=== PATIENT | male | born 1950 | race Caucasian/White ===

== ENCOUNTER 2016-04-07 12:53 | Outpatient (CLI) | payer MEDICARE, MEDICAID ==
[~2016-04-07] VITALS: Ht 167.6 cm; Wt 80.0 kg
--- NOTE | ~2016-04-07 | HEMODYNAMI ---
PATIENT:THOMAS CORREA MEDICAL RECORD: [id number] : 46 [id number] ADMISSION DATE: 04/07/16 Generatedon:04/08/20169:59 Patient name: THOMAS CORREA Patient #: [id number] SSN: D OB: 1950 Date of study: 04/08/2016 Page: Of Hemodynamic Procedure Report Patient Data Patient Demographics Procedure consent was obtained First Name: THOMAS Gender: Male Last Name: SUNNY : 1950 [facility] Initial: B Age: 65 year(s) Patient #: [id number] Race: Additional ID: [id number] Contact details Address: [address] [place] [address] State: [place] City: [facility] Zip code: [address] Past Medical History Allergies Allergen Reaction Date Comments Reported Other allergy 06/[facility] Admission Admission Data Admission Date: 04/07/2016 Admission Time: 13:52 Admit Source: Other Insurance Payor: Medicare, Room #: D.2114 Medicaid Height (in.): 66 BSA: 1.9 (m2) Height (cm.): 167.64 BMI: 28.47 (kg/m2) Weight (lbs.): 176.37 Weight (kg.): 80 Lab Results Lab Result Date: 04/08/2016 Lab Result Time: 0:00 Biochemistry Name Units Result Min Max BUN mg/dl 16 --(---*)-- 7 18 Creatinine mg/dl 1 --(--*-)-- 0.6 1.3 CBC Name Units Result Min Max Hematocrit % 38.6 *-(----)-- 42 54 Hemoglobin g/dl 13.2 -*(----)-- 13.5 17.5 Procedure Procedure Types Cath Procedure Diagnostic Procedure [facility] w/Coronaries PCI Procedure Coronary Stent Initial Miscellaneous Procedures Moderate Sedation up to 30 minutes Procedure Description Procedure Date Procedure Date: 04/08/2016 Procedure Start Time: 9:25 Procedure End Time: 9:58 Procedure Staff Name Function Estuardo Gregg MD Performing Physician Mckenzie Silva RT Scrub German Walker RN Nurse Benjamin Helms RT Sports Teacher Abilio Levy RT Monitor Procedure Data Cath Procedure Fluoroscopy Diagnostic fluoroscopy Total fluoroscopy Time: time: 10.5 min 10.5 min Diagnostic fluoroscopy Total fluoroscopy dose: dose: 890.78 mGy 890.78 mGy Contrast Material Contrast Material Type Amount (ml) Isovue 300 145 Entry Location Entry Primary Successful Side Size Upsize Upsize Entry Closure Succes sful Closure Location (Fr) 1 (Fr) 2 (Fr) Remarks Device Remarks Femoral Right 5 Fr 7 Fr Exoseal artery Short Estimated blood loss: 10 ml Diagnostic catheters Device Type Used For End Catheter Placement Cordis 5Fr Pigtail Procedure Catheter (MP) Cordis 5Fr JL 4.0 Procedure Catheter (MP) Diagnostic Infinity 5Fr Procedure JL 5 catheter Cordis 5Fr 3DRC Catheter Procedure (MP) Procedure Complications No complications Procedure Medications Medication Administration Route Dosage Oxygen NC 2 l/min Heparin Flush Bag added to field 2 bags (1000units/500ml NS) 0.9% NaCl I.V. 100 ml/hr Fentanyl I.V. 100 mcg Versed I.V. 2 mg Fentanyl I.V. 50 mcg Fentanyl I.V. 50 mcg Heparin Bolus I.V. 5000 units Versed I.V. 1 mg Hemodynamics Rest BSA: 1.9 (m2) HGB: 13.2 (g/dl) O2 Consumption: Estimated: 242.8 (ml/min) O2 Cons umption indexed: Estimated:127.79 (ml/min/m) Heart Rate: 101 (bpm) Snapshots Pre Cath Intra NCS Post Cath Vital Signs Time Heart Resp SPO2 NIBP (mmHg) Rhythm Pain Sedation Rate (ipm) (%) Status Level (bpm) 8:59:18 100 19 100 179/109(152) NSR 0 (11) 10(A) , No pain 9:03:49 90 17 97 163/77(128) NSR 0 (11) 10(A) , No pain 9:08:07 85 18 96 133/77(117) NSR 0 (11) 10(A) , No pain 9:12:25 80 17 94 133/81(104) NSR 0 (11) 10(A) , No pain 9:16:43 84 20 99 131/81(114) NSR 0 (11) 10(A) , No pain 9:21:01 82 19 95 120/80(93) NSR 0 (11) 10(A) , No pain 9:25:19 89 20 89 119/69(93) NSR 0 (11) 10(A) , No pain 9:29:35 91 17 96 122/74(88) NSR 0 (11) 9(A) , No pain 9:33:53 83 19 88 121/69(93) NSR 0 (11) 9(A) , No pain 9:38:09 96 18 97 110/77(89) NSR 0 (11) 9(A) , No pain 9:42:21 99 20 100 130/69(86) NSR 0 (11) 9(A) , No pain 9:46:41 89 18 98 123/72(100) NSR 0 (11) 9(A) , No pain 9:50:53 86 17 100 126/73(100) NSR 0 (11) 9(A) , No pain 9:54:14 92 17 98 115/69(91) NSR 0 (11) 9(A) , No pain Medications Time Medication Route Dose Verified Delivered Reason Notes Effectiveness by by 8:53:04 Oxygen NC 2 German German Per physician l/min Aaron Walker RN RN 8:53:13 Heparin Flush added 2 German German used for Bag to bags Aaron Walker RN procedure (1000units/500ml field RN NS) 9:00:35 0.9% NaCl I.V. 100 German German Per physician ml/hr Aaron Walker RN RN 9:26:15 Fentanyl I.V. 100 German German for sedation mcg Aaron Walker RN RN 9:26:25 Versed I.V. 2 mg German German for sedation Aaron Walker RN RN 9:28:16 Fentanyl I.V. 50 German German for sedation mcg Aaron Walker RN RN 9:32:34 Fentanyl I.V. 50 German German for sedation mcg Aaron Walker RN RN 9:32:44 Heparin Bolus I.V. 5000 German German for units Walker Walker RN anticoagulation RN 9:42:58 Versed I.V. 1 mg German Porter for sedation Aaron Walker RN assistant sales center manager Log Time Note 8:20:04 Benjamin Helms RT(R) sent for patient. Start room use. 8:45:52 Informed consent obtained and on chart 8:47:31 Admit Source: Other 8:47:37 Insurance Payor : Medicare, Medicaid 8:49:40 Lab Result : Hematocrit 38.6 % 8:49:40 Lab Result : Creatinine 1 mg/dl 8:49:40 Lab Result : BUN 16 mg/dl 8:49:40 Lab Result : Hemoglobin 13.2 g/dl 8:50:10 Time tracking: Regular hours 8:50:13 Plan of Care:Hemodynamics will remain stable., Cardiac rhythm will remain stable., Comfort level will be maintained., Respiratory function will remain adequate., Patient/ family verbilizes understanding of procedure., Procedure tolerated without complication., Recovers from procedure without complications.. 8:50:20 Patient received from Med II to CCL 2 Alert and oriented. Tansferred to table in Supine position. 8:50:21 Warm blankets applied, and meghana hugger turned on for patient comfort. 8:50:21 Correct patient and procedure confirmed by team. 8:50:22 ECG and BP/O2 sat monitors applied to patient. 8:50:29 H&P Date Dictated: 04/07/2016 Within 30 days and on chart.. 8:50:30 Pre-procedure instructions explained to patient. 8:50:30 Pre-op teaching completed and patient verbalized understanding. 8:50:32 Family in patients room. 8:50:33 Patient NPO since Midnight. 8:50:35 Is the patient allergic to Iodine/contrast media? No. 8:50:36 Is patient on blood thinner?Yes 8:50:39 ACC The patient was administered the following blood thiners within the last 24 hours: ACCPlavix 8:50:40 Patient diabetic? No. 8:50:44 Previous problem with sedation/anesthesia? No ? 8:50:45 Snore? Yes 8:50:45 Sleep apnea? No 8:50:46 Deviated septum? No 8:50:47 Opens mouth fully? Yes 8:50:48 Sticks out tongue? Yes 8:50:49 Airway obstruction? No ? 8:50:53 Dentures? No ? 8:51:06 Pre procedure: right dorsailis pedis pulse 2+ Normal; easily identifiable; not easily obliterated 8:53:04 Oxygen 2 l/min NC was given by German Walker RN; Per physician; 8:53:13 Heparin Flush Bag (1000units/500ml NS) 2 bags added to field was given by German Walker RN; used for procedure; 8:57:56 Vital chart was started 8:57:57 Baseline sample Acquired. 8:58:02 Rhythm: paced 8:58:35 Full Disclosure recording started 8:58:50 Patient pain scale 0/10 ?. 8:59:07 IV patent on arrival in right hand with 0.9% NaCl at [facility]. 8:59:10 Lab results completed and on chart. 8:59:30 Right groin area was prepped with chlora-prep and draped in sterile fashion 8:59:31 Alarms reviewed by R. N. 8:59:31 Sharps counted by scrub and verified by R.N. 8:59:42 Use device set Femoral Dx 8:59:44 Tegaderm 4 x 4 opened to sterile field. 8:59:44 Acist Manifold opened to sterile field. 8:59:45 Acist Hand Control opened to sterile field. 8:59:46 Acist Syringe opened to sterile field. 8:59:47 Bag Decanter opened to sterile field. 8:59:47 Medline Cath Pack opened to sterile field. 8:59:47 Terumo 5Fr Toney Sheath opened to sterile field. 8:59:48 St David 260cm J .035 wire opened to sterile field. 8:59:49 Diagnostic Infinity 5Fr Multipack catheter opened to sterile field. 9:00:35 0.9% NaCl 100 ml/hr I.V. was given by German Walker RN; Per physician; 9:02:28 Patient Weight : 80 lbs 9:16:43 Zero performed for pressure channel P1 9:20:15 Baseline sample Acquired. 9:20:22 Baseline sample Acquired. 9:21:27 --------ALL STOP TIME OUT------ 9:21:27 Final Timeout: patient, procedure, and site verified with staff and physician. All members of the team are in agreement. 9:21:29 Right groin site verified by team. 9:21:32 Physical assessment completed. ASA score P 2 - A patient with mild systemic disease as per Estuardo Gregg MD. 9:21:35 Sedation plan: IV Moderate Sedation Versed, Fentanyl 9:22:24 Patient Height : 167.64 inches 9:25:50 Procedure started. 9:25:53 Local anesthetic to right femoral artery with Lidocaine 2% by Estuardo Gregg MD.INITIAL ACCESS ONLY 9:26:00 A 5 Fr sheath was inserted into the Right Femoral artery 9:26:15 Fentanyl 100 mcg I.V. was given by German Walker RN; for sedation; 9::25 Versed 2 mg I.V. was given by German Walker RN; for sedation; 9:27:52 A Cordis 5Fr Pigtail Catheter (MP) was advanced over the wire and used for Procedure. 9:28:05 LV gram done using MAHER 9:28:08 Injector settings: Ml/sec: 10, Volume: 20, 9:28:13 EF : 50 % 9:28:15 Catheter removed. 9:28:16 Fentanyl 50 mcg I.V. was given by German Walker RN; for sedation; 9:28:20 A Cordis 5Fr JL 4.0 Catheter (MP) was advanced over the wire and used for Procedure. 9:29:01 Catheter removed. unable to cannulate vessel. 9:29:38 A Diagnostic Infinity 5Fr JL 5 catheter was advanced over the wire and used for Procedure. 9:30:44 LCA angiography performed. 9:30:46 Catheter removed. 9:30:50 A Cordis 5Fr 3DRC Catheter (MP) was advanced over the wire and used for Procedure. 9:31:11 Merit BasixCompak Inflation Kit opened to sterile field. 9:31:46 RCA angiography performed. 9:31:49 Catheter removed. 9:32:34 Fentanyl 50 mcg I.V. was given by German Walker RN; for sedation; 9:32:41 Terumo 7Fr Toney Sheath opened to sterile field. 9:32:44 Heparin Bolus 5000 units I.V. was given by German Walker RN; for anticoagulation; 9:33:04 Medtronic Launcher 7Fr EBU 4.0 guide catheter opened to sterile field. 9:33:28 Sheath upsized to a 7 Fr Short. 9:33:36 7 Fr ebu 4 guide catheter was inserted over the wire 9:34:11 Cellartis Fielder XT J 300cm 0.014 guide wire opened to sterile field. 9:34:18 fielder wire advanced. 9:36:42 Wire advanced across lesion. 9:37:58 Inflation number: 1 A Euphora 1.5 x 15 Balloon was prepped and advanced across the Prox CX, then inflated to 21 NANCY for 0:10 (min:sec). 9:38:28 Inflation number: 2 The Euphora 1.5 x 15 Balloon was reinflated across the Prox CX, to 21 NANCY for 0:10 (min:sec). 9:38:44 ACC PCI Site: pCirc has 99% stenosis. 9:38:46 ACC Pre-intervention RACHEL Flow is 3. 9:39:17 Balloon removed over the wire. 9:40:31 Inflation number: 3 A Arrayent San German 2.5 X 15 balloon was prepped and advanced across the Prox CX, then inflated to 21 NANCY for 0:10 (min:sec). 9:41:14 Balloon removed over the wire. 9:42:58 Versed 1 mg I.V. was given by German Walker RN; for sedation; 9:43:12 Inflation Number: 4 A Medtronic Resolute 3.0 X 9 stent was prepped and advanced across the Prox CX. The stent was deployed at 21 NANCY for 0:10 (min:sec). 9:44:16 Stent catheter was removed intact over wire. 9:45:45 Inflation number: 5 A NC Euphora 3.5 x 8 balloon was prepped and advanced across the Prox CX, then inflated to 21 NANCY for 0:10 (min:sec). 9:46:33 Inflation number: 6 The NC Euphora 3.5 x 8 balloon was reinflated across the Prox CX, to 23 NANCY for 0:10 (min:sec). 9:47:09 Inflation number: 7 The NC Euphora 3.5 x 8 balloon was reinflated across the Prox CX, to 23 NANCY for 0:10 (min:sec). 9:47:45 Balloon removed over the wire. 9:47:48 ACC Post-intervention RACHEL Flow is 3. 9:48:06 Wire removed. 9:48:06 Guide catheter removed. 9:48:17 Cordis 7Fr Exoseal opened to sterile field. 9:48:27 Sheath removed intact; hemostasis achieved with Exoseal to the Right Femoral artery. 9:51:28 Procedure ended.(Physican Out) 9:51:40 Fluoroscopy time 10.50 minutes. 9:51:50 Flurop Dose total: 890.78 9:51:50 Fluoroscopy dose: 890.78 mGy 9:51:54 Contrast amount:Isovue 300 145ml. 9:51:57 Insertion/operative site no bleeding no hematoma. 9:51:59 Post-op/insertion site Right Femoral artery dressed using a 4 x 4 and Tegaderm. 9:52:04 Post right femoral artery:stable, soft, clean and dry 9:53:10 Post Procedure Pulses reassessed and unchanged 9:53:16 Post procedure: right dorsailis pedis pulse 1+ Palpable, but thready & weak; easily obliterated. 9:53:20 Post procedure rhythm: sinus rhythm 9:53:21 Post procedure instruction explained to patient.Patient verbalizes understanding. 9:54:15 Procedure type changed to Cath procedure, Diagnostic procedure, LHC, LHC w/Coronaries, PCI procedure, Coronary Stent Initial, Miscellaneous Procedures, Moderate Sedation up to 30 minutes 9:57:49 Patient needs reinforcement of post procedure teaching. 9:57:52 Estimated blood loss: 10 ml 9:58:04 Procedure and supply charges have been captured, reviewed, submitted and are correct. 9:58:10 Procedure Complication : No complications 9:58:13 Vital chart was stopped 9:58:13 See physician's report for complete and final results. 9:58:16 Report given to PCU. 9:58:18 Patient transfered to PCU with Stretcher. 9:58:20 Procedure ended. 9:58:20 Full Disclosure recording stopped 9:58:30 ACC-PCI Only Patient was given prescriptions, or instructed by Estuardo Gregg MD to start/continue the following medications upon discharge: Aspirin, Plavix 9:58:34 End room use (Document Last) Intervention Summary Intervention Notes Time ActionType Lesion and Equipment Action# Pressure Duration Attributes Used 9:37:58 Inflate Prox CX Euphora 1 21 00:10 balloon 1.5 x 15 Balloon 9:38:28 Reinflate Prox CX Euphora 2 21 00:10 balloon 1.5 x 15 Balloon 9:40:31 Inflate Prox CX [place] 3 21 00:10 balloon Sci San German 2.5 X 15 balloon 9:43:12 Place stent Prox CX Medtronic 4 21 00:10 Resolute 3.0 X 9 stent 9:45:45 Inflate Prox CX NC 5 21 00:10 balloon Euphora 3.5 x 8 balloon 9:46:33 Reinflate Prox CX NC 6 23 00:10 balloon Euphora 3.5 x 8 balloon 9:47:09 Reinflate Prox CX NC 7 23 00:10 balloon Euphora 3.5 x 8 balloon Device Usage Item Name Manufacture Quantity Catalog Number Hospital Part Current Mini [facility] Lot# / Charge Number Stock Stock Serial# Code Tegaderm 4 3M 1 [id number] 458954 107265 5 x 4 Acist Acist 1 00814 557505 288717 525325 5 Manifold Medical Systems Inc Acist Hand Acist 1 53337 396010 869270 703967 5 Control Medical Systems Inc Acist Acist 1 08850 833260 655523 110782 20 Syringe Medical Systems Inc Bag Microtek 1 2002S 720565 39921 069967 5 DecTweetMeme Medical Inc. Medline Cardinal 1 [id number] 556095 72144 942707 5 Cath Pack Health Terumo 5Fr Terumo 1 [id number] 159563 563144 888836 [address] [facility] 1 718230 195896 578714 327929 30 260cm J .035 wire Diagnostic Cardinal 1 [id number] 179420 99359 114445 30 Infinity Health 5Fr Multipack catheter Cordis 5Fr Cardinal 1 215723 5 Pigtail Health Catheter (MP) Cordis 5Fr Cardinal 1 616988 5 JL 4.0 Health Catheter (MP) Diagnostic Cardinal 1 [id number] 888876 114047 868605 5 Infinity Health 5Fr JL 5 catheter Cordis 5Fr Cardinal 1 243568 5 [facility] Health Catheter (MP) Merit Merit 1 AE7697 790692 043509 117956 15 Anyone Home Medical Inflation Kit Terumo 7Fr Terumo 1 [id number] 835595 323032 148362 5 Toney Sheath Medtronic Medtronic 1 [id number] 111493 780481 577584 0 Launcher 7Fr EBU 4.0 guide catheter Pyle Pyle 1 [id number] 565749 836452 159062 5 Fielder XT Vascular J 300cm 0.014 guide wire Euphora 1.5 Medtronic 1 [id number] 972909 194864 443918 5 [id number] x 15 Balloon [place] Sci [place] 1 [id number] 004897 691534 772947 1 [id number] velingo 2.5 X 15 balloon Medtronic Medtronic 1 [id number] 738218 099546 4 [id number] Resolute 3.0 X 9 stent NC Euphora Medtronic 1 [id number] 788386 529414 163343 1 [id number] 3.5 x 8 balloon Cordis 7Fr Cardinal 1 EX700 418847 830901 323284 5 [facility] Health Signature Audit Mora Stage Time Signature Unsigned Intra-Procedure 04/08/2016 Benjamin Helms 9:59:06 AM RT(R) Signatures Monitor : Abilio Levy RT Signature : Date : Time : [facility] [address] [place] [address]
[2016-04-07 11:37] LABS: ALBUMIN 4.5 g/dL (3.4-5.0); ALKALINE PHOSPHATASE 75 U/L (46-116); ALT (SGPT) 22 U/L (10-68); BILIRUBIN - TOTAL 0.48 mg/dL (0.2-1.3); CALC OSMOLALITY 279 mosm/kg (275-300); CALCIUM 9.4 mg/dL (8.5-10.1); CARBON DIOXIDE 29.2 mmol/L (21.0-32.0); CHLORIDE - SERUM 103 mmol/L (98-107); GLUCOSE 99 mg/dL (74-106); POTASSIUM - SERUM 4.5 mmol/L (3.5-5.1); SODIUM 140 mmol/L (136-145); UREA NITROGEN 16 mg/dL (7-18); eGFR NON AFRICAN AMERICAN 79 mL/min (90-120)
[2016-04-07 11:42] LABS: BASOPHILS 0.8 % (0.0-2.0); EOSINOPHILS 4.9 % (0-7); HEMATOCRIT 38.6 % (42.0-54.0); HEMOGLOBIN 13.2 g/dL (13.5-17.5); LYMPHOCYTES 30.2 % (15-50); MCH 31.1 pg (26.0-34.0); MCHC 34.2 g/dL (31.0-37.0); MEAN PLATELET VOLUME 10.9 fL (7.4-10.4); MONOCYTES 8.3 % (2-11); NEUTROPHILS 55.8 % (40-80); PLATELET COUNT 198 10x3/uL (130-400); RBC 4.24 10x6/uL (4.20-6.10); RDW 14.3 % (11.5-14.5); WBC 3.8 10x3/uL (4.8-10.8)
[2016-04-07 11:47] LABS: CKMB 0.5 U/L (0.0-3.6); CREATINE KINASE 63 UL (21-232)
[2016-04-07 11:51] LABS: TROPONIN-I < 0.017 ng/mL (0.000-0.060)
[~2016-04-07 12:53] MED LIST: AMBIEN5 MG PO; ASPIRIN EC81 M1 PO; FISH OIL 1,0001 CA1 PO; FLOMAX0.4 MG PO; HYDROCODONE-APA1 TAB PO; OMEPRAZOLE20 M1 PO; PLAVIX75 MG PO; PRAVACHOL40 MG PO; SYNTHROID25 MCG PO; WELCHOL625 MG PO; ZYLOPRIM300 MG PO
[2016-04-07 14:25] VITALS: BP 122/77; Ht 167.6 cm; Wt 80.0 kg
[2016-04-07] MEDS ORDERED: RANEXA500 MG PO (15:12)
[2016-04-07] MEDS ORDERED: PRAVACHOL40 MG PO (15:13)
[2016-04-07] MEDS ORDERED: ZYLOPRIM300 MG PO (15:14)
[2016-04-07] MEDS ORDERED: NITROSTAT0.4 MG SL (15:18)
[2016-04-07 16:00] VITALS: BP 112/61
[2016-04-07 19:41] VITALS: BP 129/74
[2016-04-08 01:20] VITALS: BP 132/78
[2016-04-08 04:33] VITALS: BP 99/57
[2016-04-08 08:01] VITALS: BP 138/77
--- NOTE | 2016-04-08 10:32 | NUR ---
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 DRSG TO R.GROIN CDI NO S/S OF HEMATOMA OR BLEEDING NOTED. TELEMETRY BACK IN PLACE. VSS. PT LYING FLAT AND VERBALIZED UNDERSTANDING TO REMAIN FLAT FOR 4 HOURS. NS INFUSING VIA R.HAND PIV WITH CONORG CDI AND SWAB CAPS IN USE NS INFUSING @100ML/HR. AT BEDSIDE WILL CTM.
--- NOTE | 2016-04-08 11:08 | NUR ---
VSS. PERIPHERAL PULSES INTACT. R.GROIN DRSG CDI NO S/S OF HEMATOMA OR BLEEDING NOTED. AT BEDSIDE. WILL CTM.
[2016-04-08 11:46] VITALS: BP 107/73
--- NOTE | 2016-04-08 14:26 | NUR ---
4 HOUR LAY COMPLETED. PT SITTING UP AND VOIDED. DISCHARGE PAPERS SIGNED AND TEACHING COMPLETED AND IN CHART. D/C PTS R.HAND PIV WITH CATHETER TIP FULLY INTACT. R.GROIN DRSG CDI NO S/S OF BLEEDING OR HEMATOMA NOTED. PERIPHERAL PULSES INTACT. NO FURTHER NEEDS NOTED.
--- NOTE | 2016-04-15 08:46 | HP ---
PATIENT: THOMAS CORREA MEDICAL RECORD: [id number] ACCOUNT: [id number] LOCATION:[facility] : 46 ADMISSION DATE: 04/07/16 HISTORY AND PHYSICAL EXAMINATION DATE OF ADMISSION: 04/07/2016 DIAGNOSES: 1. Angina. 2. Coronary artery disease. 3. Previous percutaneous transluminal coronary angioplasty stent. 4. Hypertension. 5. Hyperlipidemia. HISTORY OF PRESENT ILLNESS: This is a gentleman with a past history of coronary artery disease, hypertension and hyperlipidemia, who presents to the ER with 2 weeks of ongoing chest pain, chest discomfort compatible with angina. He was seen in our office, risk stratified, his stress test was positive. He was going to be set for cardiac catheterization. PHYSICAL EXAMINATION: GENERAL APPEARANCE: Well-nourished, well-developed, appears stated age. Level of distress, comfortable. PSYCHIATRIC: Mental status, alert, normal affect. Orientation, oriented to time, place and person. EYES: Lids and conjunctiva, noninjected. No discharge, no pallor. ENT: Lips, teeth, gums, normal dentition. Oropharynx, no cyanosis, no pallor. NECK: Carotid arteries, bilateral normal upstroke, no bruits, no thrills. JUGULAR VEINS: No jugular venous pressure or distention. CERVICAL LYMPH NODES: Nontender, nonenlarged. THYROID: Not enlarged. Nontender. No nodules. LUNGS: Respiratory effort, unlabored. CHEST: Normal curvature. No thoracic deformity. No chest wall tenderness. Percussion, resonant. Auscultation, clear. No wheezes, no rales, no rhonchi. CARDIOVASCULAR: Precordial exam, nondisplaced. No heaves or pericardial thrills. Rate and rhythm, regular. Heart sounds, normal S1, normal S2. No S3, no gallop, no rub. Systolic murmur, not heard. Diastolic murmur, not heard. EXTREMITIES: No cyanosis, no edema. Peripheral pulses, full and equal in all extremities, except as noted. No bruits appreciated. ABDOMEN: Soft, nondistended. Normal aorta. No bruit. Nontender. No masses. Liver, nontender, no hepatomegaly. Spleen, nontender, no splenomegaly. MUSCULOSKELETAL: No joint tenderness. No joint swelling. No erythema. NEUROLOGICAL: Normal gait, normal strength, normal tone. SKIN: Warm and dry. REVIEW OF SYSTEMS: The patient reports easy bruising but reports no swollen glands. The patient reports no fever, no night sweats, no significant weight gain, no significant weight loss. No significant exercise tolerance. The patient reports no dry eyes, no irritation, no vision change. Patient reports no difficulty hearing and no ear pain. Patient reports no frequent nose bleeds or nose and sinus problems. Patient reports on arm pain on exertion. No shortness of breath while lying down. No history of heart murmur. Patient reports no cough, no wheezing or coughing up blood. Patient reports no abdominal pain, no vomiting. Normal appetite. No diarrhea and not vomiting blood. No nausea and no constipation. Patient reports no incontinence. No HISTORY AND PHYSICAL [id number] THOMAS CORREA difficulty urinating. No hematuria. No increased frequency. Patient reports no muscle aches. No weakness, no arthralgias, no back pain. No swelling of the extremities. Patient reports no abnormal mole, no jaundice, no rashes. Reports no loss of consciousness. No weakness and no numbness. No seizures, dizziness, or headaches. The patient reports no depression, no sleep disturbance, feeling safe in a relationship and no alcohol abuse. Patient reports on fatigue. Reports no runny nose or sinus pressure. No itching, no hives, and no frequent sneezing. OVERALL IMPRESSION: Anginal symptomatology with a past history of coronary artery disease. We will proceed with coronary angiography in the a.m. Further care depends upon findings of the angiography. TRANSINT:[id number] Voice Confirmation ID: [id number] DOCUMENT ID: [id number] SATNAM RUSSO MD at 0846 CC: [id number] DICTATION DATE: 04/07/16 1311 DISC PAD GRINDING MACHINE FEEDER: 04/07/16 1344 DEP CLI 04/08/16 [address] [place] [address]
--- NOTE | 2016-04-15 08:46 | DS ---
PATIENT:THOMAS CORREA :46 MEDICAL RECORD: [id number] DISCHARGE SUMMARY ADMISSION DATE: 04/07/16 DISCHARGE DATE: 04/08/16 DISCHARGE DIAGNOSES: 1. Unstable angina. 2. Coronary artery disease. 3. PTCA stent in left circumflex this admission. HOSPITAL COURSE: This is a gentleman who presents with unstable anginal symptomatology, found to have 99% stenosis of the left circumflex, underwent successful PTCA stent of the left circumflex. He had an uneventful postop course. He was discharged home to continue aspirin and Plavix. Follow up with [facility] in 1 month. TRANSINT:[id number] Voice Confirmation ID: [id number] DOCUMENT ID: [id number] SATNAM RUSSO MD at 0846 CC: [id number] DICTATION DATE: 04/08/16 0953 MEDIA DIRECTOR: 04/09/16 0034 DEP CLI 04/08/16 [address] [place] [address]
--- NOTE | 2016-04-15 08:46 | OP ---
PATIENT NAME: THOMAS CORREA MEDICAL RECORD: [id number] :46 LOCATION:D.CAT ADMISSION DATE: SURGEON: SATNAM RUSSO MD DATE OF OPERATION: 04/08/2016 PROCEDURES: 1. PTCA stent left circumflex. 2. Left heart catheterization. 3. Selective coronary angiography. 4. Left ventriculogram. PROCEDURE IN DETAIL: After informed consent was obtained and after a detailed explanation of risks, benefits as well as alternative therapies, the patient elected to proceed with angiogram and angioplasty. The right femoral area was prepped and draped in normal sterile fashion. Right femoral artery was cannulated via modified Seldinger technique with placement of a 6-Thai sheath. All catheters exchanged through this sheath. FINDINGS: The left ventriculogram was performed in the standard 30-degree MAHER view, reveals good cardiac wall motion throughout all segments. Overall ejection fraction estimated at 50%. There is no significant gradient across the prosthetic tissue valve. SELECTIVE CORONARY ANGIOGRAPHY: 1. Left main showed no significant angiographic disease. 2. Left anterior descending has moderate irregularities, but no flow-limiting stenosis. 3. The left circumflex has 99% stenosis at the ostium followed by a previously placed stent that is widely patent. 4. Right coronary is small, nondominant with no significant disease throughout. PTCA STENT OF THE LEFT CIRCUMFLEX: ____ stent used was a 3.0 x 9 mm Resolute high pressure post-stent dilatation made with a 3.5 balloon up to 23 atmospheres. Result was 0% residual stenosis. OVERALL IMPRESSION: Successful percutaneous transluminal coronary angioplasty stent of the left circumflex going from 99% initial stenosis to 0% residual. TRANSINT:[id number] Voice Confirmation ID: [id number] DOCUMENT ID: [id number] SATNAM RUSSO MD at 0846 CC: [id number] DICTATION DATE: 04/08/16 0952 CUSTOMER ADVISOR SPECIALIST: 04/08/16 1757 DEP CLI 04/08/[address] [address]
== END 2016-04-08 14:37 | disposition home or self-care (01) ==
LOC: OBSVTIME → D.CATH 12:53 → D.ER 13:52 → D.M2 13:52 → OBSVTIME 13:52 → D.M2 13:52 → EDSTATUS 04-08 13:00 → D.M2 04-08 14:37 → D.CATH 04-08 14:37 → D.M2 04-08 14:37
PROVIDERS: Emergency Medicine
DX: I25.110 Atherosclerotic heart disease of native coronary artery with unstable angina pectoris (principal); Z95.5 Presence of coronary angioplasty implant and graft; I10 Essential (primary) hypertension; E78.5 Hyperlipidemia, unspecified
CPT/HCPCS: 93458; C9600

== ENCOUNTER 2016-05-25 13:06 | Inpatient (IN) | payer MEDICARE, MEDICAID ==
[~2016-05-25] VITALS: Ht 170.2 cm; Wt 81.8 kg
--- NOTE | ~2016-05-25 | HEMODYNAMI ---
PATIENT:THOMAS CORREA MEDICAL RECORD: [id number] : 46 [id number] ADMISSION DATE: 05/25/16 Generatedon:05/26/201611:04 Patient name: THOMAS CORREA Patient #: [id number] SSN: D OB: 1950 Date of study: 05/26/2016 Page: Of Hemodynamic Procedure Report Patient Data Patient Demographics Procedure consent was obtained First Name: THOMAS Gender: Male Last Name: SUNNY : 1950 Middle Initial: B Age: 65 year(s) Patient #: [id number] Race: Additional ID: [id number] Contact details Address: [address] [place] [address] State: [place] City: [facility] Zip code: [address] Past Medical History History of disease Date Diagnosis Comments CAD Peripheral vascular disease Valvular heart disease Allergies Allergen Reaction Date Comments Reported Other allergy 05/26/2016 [facility] Admission Admission Data Admission Date: 05/25/2016 Admission Time: 16:38 Admit Source: Emergency department Room #: D.2116 Weight (lbs.): 180 Weight (kg.): 81.65 Lab Results Lab Result Date: 05/26/2016 Lab Result Time: 0:00 Biochemistry Name Units Result Min Max BUN mg/dl 10 --(-*--)-- 7 18 Creatinine mg/dl 0.8 --(-*--)-- 0.6 1.3 Troponin I ng/ml 1.599 --(----)-* 0 0.06 CBC Name Units Result Min Max Hemoglobin g/dl 12.9 -*(----)-- 13.5 17.5 Procedure Procedure Types Cath Procedure Diagnostic Procedure LHC Coronaries w/Grafts Aortic Root Angiography Miscellaneous Procedures Moderate Sedation up to 45 minutes Procedure Description Procedure Date Procedure Date: 05/26/2016 Procedure Start Time: 10:38 Procedure End Time: 11:01 Procedure Staff Name Function Chuck Roper MD Performing Physician Meaghan Conroy RN Nurse Venkat Ny RT Monitor Benjamin Helms RT Scrub Procedure Data Cath Procedure Fluoroscopy Diagnostic fluoroscopy Total fluoroscopy Time: 2.5 time: 2.5 min min Diagnostic fluoroscopy Total fluoroscopy dose: 558 dose: 558 mGy mGy Contrast Material Contrast Material Type Amount (ml) Isovue 300 94 Entry Location Entry Primary Successful Side Size Upsize Upsize Entry Closure Succes sful Closure Location (Fr) 1 (Fr) 2 (Fr) Remarks Device Remarks Femoral Right 5 Fr Exoseal artery Diagnostic catheters Device Type Used For End Catheter Placement Cordis 5Fr JL 4.0 Left Coronary Catheter (MP) Angiography Cordis 5Fr 3DRC Catheter Right Coronary (MP) Angiography Cordis 5Fr Pigtail LV Angiography Catheter (MP) Diagnostic Infinity 5Fr SVG Angiography AR MOD Catheter Procedure Complications No complications Procedure Medications Medication Administration Route Dosage Oxygen NC 2 l/min Heparin Flush Bag added to field 2 bags (1000units/500ml NS) Lidocaine 2% added to field 20 Versed I.V. 1 mg Fentanyl I.V. 50 mcg Versed I.V. 0.5 mg Fentanyl I.V. 25 mcg Fentanyl I.V. 25 mcg Versed I.V. 0.5 mg Hemodynamics Rest HGB: 12.9 (g/dl) Heart Rate: 73 (bpm) Snapshots Pre Cath Intra NCS Post Cath Vital Signs Time Heart Resp SPO2 NIBP (mmHg) Rhythm Pain Sedation Rate (ipm) (%) Status Level (bpm) 10:03:52 71 15 97 122/76(105) Paced 0 (11) 10(A) , No pain 10:08:02 71 17 97 115/76(95) Paced 0 (11) 10(A) , No pain 10:12:10 69 15 97 101/61(75) Paced 0 (11) 10(A) , No pain 10:16:20 69 15 96 103/59(76) Paced 0 (11) 9(A) , No pain 10:20:26 69 14 96 95/62(74) Paced 0 (11) 9(A) , No pain 10:24:33 69 16 95 89/56(74) Paced 0 (11) 9(A) , No pain 10:28:39 69 16 96 90/53(75) Paced 0 (11) 9(A) , No pain 10:32:43 69 15 96 93/59(75) Paced 0 (11) 9(A) , No pain 10:36:49 69 16 96 87/60(75) Paced 0 (11) 9(A) , No pain 10:40:49 69 21 98 99/68(87) Paced 0 (11) 9(A) , No pain 10:44:56 69 15 94 93/60(76) Paced 0 (11) 9(A) , No pain 10:49:04 69 16 96 87/52(67) Paced 0 (11) 9(A) , No pain 10:53:10 69 23 95 88/53(66) Paced 0 (11) 9(A) , No pain 10:57:18 69 15 95 91/55(72) Paced 0 (11) 10(A) , No pain 10:59:14 69 15 97 97/55(79) Paced 0 (11) 10(A) , No pain Medications Time Medication Route Dose Verified Delivered Reason Notes Effec tiveness by by 10:03:01 Oxygen NC 2 Chuck Meaghan Per l/min Judson Conroy RN physician 10:03:08 Heparin Flush added 2 Chuck Chuck used for Bag to bags Judson Roper MD procedure (1000units/500ml field NS) 10:03:18 Lidocaine 2% added 20ml Chuck Chuck used for to vial Judson Roper MD procedure field 10:15:07 Versed I.V. 1 mg Chuck Meaghan for Judson Conroy RN sedation 10:15:15 Fentanyl I.V. 50 Chuck Meaghan for mcg Judson Conroy RN sedation 10:18:27 Fentanyl I.V. 25 Chuck Meaghan for mcg Judson Conroy RN sedation 10:18:40 Versed I.V. 0.5 Chuck Meaghan for mg Judson Conroy RN sedation 10:30:35 Fentanyl I.V. 25 Chuck Meaghan for mcg Judson Conroy RN sedation 10:30:42 Versed I.V. 0.5 Chuck Meaghan for mg Judson Conroy RN sedation Procedure Log Time Note 9:30:51 Benjamin Helms RT(R) sent for patient. Start room use. 9:30:52 Time tracking: Regular hours 9:30:55 Plan of Care:Hemodynamics will remain stable., Cardiac rhythm will remain stable., Comfort level will be maintained., Respiratory function will remain adequate., Patient/ family verbilizes understanding of procedure., Procedure tolerated without complication., Recovers from procedure without complications.. :46:44 Lab Result : Creatinine 0.8 mg/dl :44 Lab Result : BUN 10 mg/dl :44 Lab Result : Troponin T 1.599 ng/ml :44 Lab Result : Hemoglobin 12.9 g/dl 9:46:47 Lab results completed and on chart. 9:48:51 Patient allergic to Other allergylevaquin 9:52:20 Admit Source: Emergency department 9:52:26 ACC Patient presents with Unstable Angina CCS Anginal Class 3--Marked limitation of physical activity, angina occurs with ordinary activity.. 9:52:30 Diagnostic Cath status Urgent 9:52:36 Patient received from PCU to CCL 2 Alert and oriented. Tansferred to table in Supine position. 9:52:37 Warm blankets applied, and meghana hugger turned on for patient comfort. 9:52:37 Correct patient and procedure confirmed by team. 9:52:39 Signed procedure consent form obtained from patient. 9:52:39 ECG and BP/O2 sat monitors applied to patient. 10:02:50 Vital chart was started 10:03:01 Oxygen 2 l/min NC was administered by Meaghan Conroy RN; Per physician; 10:03:08 Heparin Flush Bag (1000units/500ml NS) 2 bags added to field was administered by Chuck Roper MD; used for procedure; 10:03:18 Lidocaine 2% 20ml vial added to field was administered by Chuck Roper MD; used for procedure; 10:05:09 Baseline sample Acquired. 10:05:19 Rhythm: sinus rhythm 10:05:22 Full Disclosure recording started 10:05:51 H&P Date Dictated: 05/25/2016 Within 30 days and on chart., H&P Addendum completed by physician on day of procedure. (MUST COMPLETE FOR ALL OUTPATIENTS). 10:05:53 Pre-procedure instructions explained to patient. 10:05:53 Pre-op teaching completed and patient verbalized understanding. 10:05:56 Family in patients room. 10:05:58 Patient NPO since Midnight. 10:06:00 Is the patient allergic to Iodine/contrast media? No. 10:08:40 Is patient on blood thinner?Yes 10:08:43 ACC The patient was administered the following blood thiners within the last 24 hours: ACCPlavix 10:08:49 Patient diabetic? No. 10:09:34 ----Pre-sedation anethsthesia assessment.---- 10:09:38 Previous problem with sedation/anesthesia? No ? 10:09:42 Snore? Yes 10:12:35 Sleep apnea? No 10:12:37 Deviated septum? No 10:12:38 Opens mouth fully? Yes 10:12:42 Sticks out tongue? Yes 10:12:44 Airway obstruction? No ? 10:12:55 Dentures? Yes out 10:13:00 Pre procedure: right dorsailis pedis pulse 1+ Palpable, but thready & weak; easily obliterated 10:13:05 Patient pain scale 0/10 ?. 10:13:10 IV patent on arrival in right hand with 0.9% NaCl at 10ml/hr. 10:13:19 Right groin area was prepped with chlora-prep and draped in sterile fashion 10:13:20 Alarms reviewed by R. N. 10:13:20 Sharps counted by scrub and verified by R.N. 10:13:22 --------ALL STOP TIME OUT------ 10:13:22 Final Timeout: patient, procedure, and site verified with staff and physician. All members of the team are in agreement. 10:13:24 Right groin site verified by team. 10:13:26 Physical assessment completed. ASA score P 2 - A patient with mild systemic disease as per Chuck Roper MD. 10:13:30 Sedation plan: IV Moderate Sedation Versed, Fentanyl 10:15:07 Versed 1 mg I.V. was administered by Meaghan Conroy RN; for sedation; 10:15:15 Fentanyl 50 mcg I.V. was administered by Meaghan Conroy RN; for sedation; 10:15:31 Use device set Femoral Dx 10:15:32 Bag Decanter opened to sterile field. 10:15:33 Medline Cath Pack opened to sterile field. 10:15:33 Terumo 5Fr Underwood Sheath opened to sterile field. 10:15:33 [facility] David 260cm J .035 wire opened to sterile field. 10:15:34 Acist Syringe opened to sterile field. 10:15:35 Acist Hand Control opened to sterile field. 10:15:36 Acist Manifold opened to sterile field. 10:15:36 Diagnostic Infinity 5Fr Multipack catheter opened to sterile field. 10:15:37 Tegaderm 4 x 4 opened to sterile field. 10:18:27 Fentanyl 25 mcg I.V. was administered by Meaghan Conroy RN; for sedation; 10:18:40 Versed 0.5 mg I.V. was administered by Meaghan Conroy RN; for sedation; 10:20:36 Patient Weight : 81.65 kg 10:22:16 Zero performed for pressure channel P1 10:30:35 Fentanyl 25 mcg I.V. was administered by Meaghan Conroy RN; for sedation; 10:30:42 Versed 0.5 mg I.V. was administered by Meaghan Conroy RN; for sedation; 10:38:36 Procedure started. 10:38:47 Local anesthetic to right femoral artery with Lidocaine 2% by Chuck Roper MD.INITIAL ACCESS ONLY 10:38:55 A 5 Fr sheath was inserted into the Right Femoral artery 10:39:36 A Cordis 5Fr JL 4.0 Catheter (MP) was advanced over the wire and used for Left Coronary Angiography. 10:41:19 LCA angiography performed. 10:47:04 Catheter removed. 10:47:09 A Cordis 5Fr 3DRC Catheter (MP) was advanced over the wire and used for Right Coronary Angiography. 10:47:11 RCA angiography performed. 10:48:33 Catheter removed. 10:48:38 A Cordis 5Fr Pigtail Catheter (MP) was advanced over the wire and used for LV Angiography. 10:49:25 Aortic Root visualized 10:49:35 Injector settings: Ml/sec: 15, Volume: 30, 10:50:02 Procedure type changed to Cath procedure, Diagnostic procedure, LHC, Coronaries w/Grafts, Aortic Root Angiography, Miscellaneous Procedures, Moderate Sedation up to 45 minutes 10:51:08 Catheter removed. 10:53:05 A Diagnostic Infinity 5Fr AR MOD Catheter was advanced over the wire and used for SVG Angiography. 10:53:52 SVG to Circ angiography performed. 10:57:41 Cordis 5Fr Exoseal opened to sterile field. 10:57:44 Catheter removed. 10:58:25 Sheath removed intact; hemostasis achieved with Exoseal to the Right Femoral artery. 10:58:27 Procedure ended.(Physican Out) 10:59:20 Fluoroscopy time 02.50 minutes. 10:59:33 Fluoroscopy dose: 558 mGy 10:59:33 Flurop Dose total: 558 10:59:50 Contrast amount:Isovue 300 94ml. 10:59:51 Sharps counted by scrub and verified by R.N. 10:59:52 Insertion/operative site no bleeding no hematoma. 10:59:55 Post-op/insertion site Right Femoral artery dressed using a 4 x 4 and Tegaderm. 10:59:58 Post right femoral artery:stable 10:59:59 Post Procedure Pulses reassessed and unchanged 11:00:01 Post procedure: right dorsailis pedis pulse 1+ Palpable, but thready & weak; easily obliterated. 11:00:04 Post procedure rhythm: sinus rhythm 11:00:05 Post procedure instruction explained to patient.Patient verbalizes understanding. 11:00:22 Procedure and supply charges have been captured, reviewed, submitted and are correct. 11:01:05 Procedure Complication : No complications 11:01:07 Vital chart was stopped 11:01:07 See physician's report for complete and final results. 11:01:10 Report given to PCU. 11:01:13 Patient transfered to PCU with Bed. 11:01:14 Procedure ended. 11:01:14 Full Disclosure recording stopped 11:01:20 End room use (Document Last) Device Usage Item Name Manufacture Quantity Catalog Hospital Part Current Minimal Lo t# / Number Charge Number Stock Stock Serial# Code [place] [id number] 2001 [id number] [id number] [id number] 5 Renaissance [employer] Medline Cardinal 1 [id number] 552269 37937 503648 5 Binpress Terumo 5Fr Terumo 1 [id number] 985164 763404 385534 [address] [facility] 1 454241 398582 401071 610607 30 260cm J .035 wire Acist Acist 1 76497 099378 217546 106991 20 Syringe Medical Systems Inc Acist Hand Acist 1 36385 914392 138393 366841 5 Control Medical Systems Inc Acist Acist 1 64269 917359 508983 538174 5 Manifold Medical Systems Inc Diagnostic Cardinal 1 [id number] 755821 15261 686449 30 MolecularMDity Health 5Fr Multipack catheter Tegaderm 4 3M 1 1626W 292266 446689 158900 5 x 4 Cordis 5Fr Cardinal 1 301246 5 JL 4.0 Health Catheter (MP) Cordis 5Fr Cardinal 1 857542 5 3DRC Health Catheter (MP) Cordis 5Fr Cardinal 1 054847 5 Pigtail Health Catheter (MP) Diagnostic Cardinal 1 [id number] 522142 686947 717808 15 Infinity Health 5Fr AR MOD Catheter Cordis 5Fr Cardinal 1 EX500 302901 150548 079887 10 Vite Signature Audit [place] Stage Time Signature Unsigned Intra-Procedure 05/26/2016 Venkat Ny 11:04:25 AM RT(R) Signatures Monitor : Venkat Ny RT Signature : Date : Time : [facility] [address] [facility] [place] [address]
[~2016-05-25 13:06] MED LIST changes: +NITROSTAT0.4 MG SL; +RANEXA500 MG PO
[2016-05-25 14:34] LABS: BASOPHILS 0.3 % (0.0-2.0); EOSINOPHILS 1.3 % (0-7); HEMATOCRIT 38.5 % (42.0-54.0); HEMOGLOBIN 12.9 g/dL (13.5-17.5); IMMATURE GRANULOCYTES 0.2 % (0-5); LYMPHOCYTES 14.7 % (15-50); MCH 30.6 pg (26.0-34.0); MCHC 33.5 g/dL (31.0-37.0); MCV 91.4 fL (80.0-100.0); MEAN PLATELET VOLUME 10.7 fL (7.4-10.4); MONOCYTES 7.4 % (2-11); NEUTROPHILS 76.1 % (40-80); PLATELET COUNT 168 10x3/uL (130-400); RBC 4.21 10x6/uL (4.20-6.10); RDW 14.4 % (11.5-14.5); WBC 6.3 10x3/uL (4.8-10.8)
[2016-05-25 15:39] LABS: ALBUMIN 4.4 g/dL (3.4-5.0); ALKALINE PHOSPHATASE 74 U/L (46-116); ALT (SGPT) 30 U/L (10-68); BILIRUBIN - TOTAL 0.56 mg/dL (0.2-1.3); CALCIUM 9.1 mg/dL (8.5-10.1); CHLORIDE - SERUM 104 mmol/L (98-107); CHOL - HDL RATIO 5.6 ratio (2.3-4.9); CHOLESTEROL, TOTAL 214 mg/dL (0-200); CKMB 5.2 U/L (0.0-3.6); CREATINE KINASE 124 UL (21-232); CREATININE - SERUM 0.8 mg/dL (0.6-1.3); GLUCOSE 119 mg/dL (74-106); HDL CHOLESTEROL 38 mg/dL (32-96); LDL CHOLESTEROL 118 mg/dL (0-100); LDL-HDL RATIO 3.1 ratio (1.5-3.5); POTASSIUM - SERUM 4.1 mmol/L (3.5-5.1); PROTEIN - SERUM 7.6 g/dL (6.4-8.2); SODIUM 139 mmol/L (136-145); TRIGLYCERIDE 290 mg/dL (30-200); eGFR NON AFRICAN AMERICAN > 90 mL/min (90-120)
[2016-05-25 15:40] LABS: TROPONIN-I 1.599 ng/mL (0.000-0.060)
[2016-05-25 15:48] LABS: CARBON DIOXIDE 18.9 mmol/L (21.0-32.0); UREA NITROGEN 10 mg/dL (7-18)
[2016-05-25 15:49] LABS: CALC OSMOLALITY 275 mosm/kg (275-300)
--- NOTE | 2016-05-25 17:08 | NUR ---
TRANSFER FROM ER BY W/C. ROSA MARIAINTED TO ROOM. CALL LIGHT IN REACH. WILL CONT. PLAN OF CARE.
[2016-05-25 17:22] VITALS: BP 100/62; Ht 170.2 cm; Wt 81.8 kg
[2016-05-25] MEDS ORDERED: WELCHOL625 MG PO (17:46)
[2016-05-25 19:25] LABS: CKMB 9.9 U/L (0.0-3.6); CREATINE KINASE 131 UL (21-232)
[2016-05-25 19:33] LABS: TROPONIN-I 4.291 ng/mL (0.000-0.060)
--- NOTE | 2016-05-25 19:57 | NUR ---
RESUMED CARE OF PT, LYING IN BED RESPIRATIONS EVEN AND UNLABORED ON ROOM AIR. 71 PACED ON TELEMETRY. RIGHT HAND SALINE LOCKED. PLAN OF CARE DISCUSSED, WILL BE NPO AT MIDNIGHT FOR [facility] IN AM. CALL LIGHT IN REACH. WILL CONTINUE TO MONITOR. SEE NURSE ASSESSMENT.
[2016-05-25 20:00] VITALS: BP 99/62
[2016-05-26] VITALS: BP 99/62
--- NOTE | 2016-05-26 00:05 | NUR ---
RESOURCE ENGINEER AT BEDSIDE TO OBTAIN VITALS, CALL LIGHT IN REACH. WILL CONTINUE WITH PLAN OF CARE.
[2016-05-26 01:22] LABS: CKMB 12.2 U/L (0.0-3.6); CREATINE KINASE 158 UL (21-232)
[2016-05-26 01:27] LABS: TROPONIN-I 5.763 ng/mL (0.000-0.060)
[2016-05-26 04:00] VITALS: BP 115/69
--- NOTE | 2016-05-26 05:43 | NUR ---
UP TO SHOWER, LINENS CHANGED.
[2016-05-26 07:26] LABS: CHLORIDE - SERUM 102 mmol/L (98-107); CKMB 9.1 U/L (0.0-3.6); CREATINE KINASE 134 UL (21-232); CREATININE - SERUM 0.9 mg/dL (0.6-1.3); GLUCOSE 126 mg/dL (74-106); POTASSIUM - SERUM 3.6 mmol/L (3.5-5.1); SODIUM 138 mmol/L (136-145); eGFR NON AFRICAN AMERICAN 89 mL/min (90-120)
[2016-05-26 07:28] LABS: CALC OSMOLALITY 278 mosm/kg (275-300); CARBON DIOXIDE 26.1 mmol/L (21.0-32.0); TROPONIN-I 4.978 ng/mL (0.000-0.060); UREA NITROGEN 15 mg/dL (7-18)
[2016-05-26 08:41] VITALS: BP 116/68
--- NOTE | 2016-05-26 09:15 | NUR ---
TELEMETRY PACED. HR 61. AT BS. CALL LIGHT IN REACH. WILL CONT. PLAN OF CARE.
--- NOTE | 2016-05-26 10:02 | NUR ---
PRE-OPS GIVEN. TO MASTER SHEET CLERK BY BED.
--- NOTE | 2016-05-26 11:25 | NUR ---
BACK FROM CHOKE REAMER. VS WNL. RIGHT GROIN STABLE WITHOUT BLEEDING OR HEMATOMA NOTED. WILL MONITOR.
[2016-05-26 12:00] VITALS: BP 96/53
--- NOTE | 2016-05-26 13:34 | NUR ---
BED REST UP. GROIN STABLE.
--- NOTE | 2016-05-26 15:12 | NUR ---
UP IN CHAIR. TYLENOL GIVEN FOR C/O ALVAREZ. WILL MONITOR.
[2016-05-26 16:33] VITALS: BP 95/57
[2016-05-26 20:00] VITALS: BP 95/45
--- NOTE | 2016-05-26 20:00 | NUR ---
PT RESTING IN BED. ALERT/ORIENTED. PACED ON TELEMETRY. SALINE LOCK TO RIGHT HAND. HEART CATH DONE TODAY, ASSESSED RIGHT GROIN. SITE WITH DRESSING C/D/I, NO BRUISING OR SWELLING. GOOD PEDAL PULSES. PT HAS BEEN HAVING A LOW BP. WILL HOLD HS LOPRESSOR. HE IS HAVING A HEADACHE, WILL GIVE TYLENOL.
--- NOTE | 2016-05-26 21:27 | NUR ---
ADMINISTERED TYLENOL FOR HEADACHE. HELD LOPRESSOR. MONITORING BP.
[2016-05-27] VITALS: BP 109/61
[2016-05-27 04:00] VITALS: BP 112/67
[2016-05-27 08:25] VITALS: BP 114/70
[2016-05-27 12:32] VITALS: BP 112/64
[2016-05-27] MEDS ORDERED: METOPROLOL TART50 MG PO (13:35)
--- NOTE | 2016-05-27 13:54 | NUR ---
D/C PTS R.HAND PIV WITH CATHETER TIP FULLY INTACT. PT READY TO BE DISCHARGED. DISCHARGE TEACHING COMPLETED AND PAPERS SIGNED. PT DENIES ANY QUESTIONS OR CONCERNS. WILL NOW CALL FOR W/C. NO FURTHER NEEDS.
--- NOTE | 2016-05-27 14:32 | NUR ---
Patient Name: THOMAS CORREA Admission Status: ER Accout number: [id number] Admission Date: 05-26-2016 : 1950 Admission Diagnosis:UNSTABLE ANGINA Attending: JOEL Current LOS: 1 Anticipated DC Date: 05-27-2016 Planned Disposition: Home Primary Insurance: [employer] Is the patient Alert and Oriented? Yes * How many steps to enter\exit or inside your home? SEVEN * PCP DR ZENG * Pharmacy [facility] * Preadmission Environment Home with Family * ADLs Independent * List name and contact numbers for known caregivers / representatives who currently or will assist patient after discharge: ARCELIA VASQUEZ, [place], [phone] * Community resources currently utilized None * Additional services required to return to the preadmission environment? No * Can the patient safely return to the preadmission environment? Yes * Has this patient been hospitalized within the prior 30 days at any hospital? No Discharge Planning Comments: CM MET WITH PATIENT TO ASSESS DC PLAN/NEEDS. PT STATED HE LIVES AT HOME WITH SO AND IS INDEPENDENT IN HIS CARE/ADL'S AND DRIVES HIMSELF. STATED HE AMBULATES WITH NO ASSISTANCE AND HAS NO DME. REPORTED NEVER USING HH OR REHAB SERVICES IN THE PAST AND DENIED NEED FOR THOSE SERVICES AT DISCHARGE. HIS SO WILL DRIVE HIM HOME AT DISCHARGE AND HE VOICED NO DC NEEDS. STATED HOME IS A SAFE PLACE AND PLANS TO RETURN HOME AT DISCHARGE. Print Production Manager: Jasmina Coronado RN, CM
--- NOTE | 2016-06-03 12:24 | OP ---
PATIENT NAME: THOMAS CORREA MEDICAL RECORD: [id number] :[birth year] LOCATION:D. D.2116 ADMISSION DATE:05/26/16 SURGEON: MALATHI GUTIERREZ M.D. DATE OF OPERATION: 05/26/2016 PROCEDURES PERFORMED: 1. Selective coronary angiography. 2. Left heart catheterization with ventriculogram. 3. Bypass angiography. 4. Aortic root injection. INDICATION: A 65-year-old gentleman with history of coronary artery disease who presents with unstable angina. EQUIPMENT USED: A 5-Zambian JL4, AR modified catheter, pigtail catheter. TECHNIQUE: A 5-Zambian sheath was inserted in retrograde fashion in the right common femoral artery. Next, selective coronary angiography was performed in standard views using 5-Zambian JL4 and AR modified catheters. Bypass angiography was performed using AR modified catheter. Aortic root injection was performed using pigtail catheter. CORONARY ANATOMY: 1. Left main: Left main trunk is moderate in caliber. It gives rise to the LAD and circumflex. There is no obstruction. 2. LAD: This is a moderate-caliber vessel extending to the apex. The proximal vessel has been stented. There are mild irregularities noted, but nothing worse than 20%. The first diagonal branch is moderate in caliber. It has mild irregularities, but again, nothing worse than 20%. 3. Circumflex: This vessel is moderate in caliber. The origin of the vessel has been stented. In some views, there appears to be about a 30% restenosis. The mid vessel is of good caliber and has no obstruction. 4. Ramus: This vessel is 100% occluded at the origin. 5. Right coronary artery: This vessel is small in caliber and nondominant. It has mild irregularities throughout its course. 6. Saphenous vein graft to ramus. This graft is widely patent throughout its course. The anastomosis is free of disease. It fills 2 limbs of the ramus branch. 7. Vein graft to the PDA. This graft was not selectively engaged, but appears to be widely patent. 8. Ascending aorta: The ascending aorta is dilated proximal to the arch. Aortic valve is prosthetic. There is no insufficiency noted. IMPRESSION: 1. Patent stents in the left anterior descending and circumflex without evidence of any significant restenosis. 2. Patent graft to the ramus. RECOMMENDATIONS: At this point, we will continue medical management. I am not sure as to why his troponin was positive on admission. We will continue with his current medical regimen. TRANSINT:[id number] Voice Confirmation ID: [id number] DOCUMENT ID: [id number] OPERATIVE REPORT [id number] THOMAS CORREA TIMOTHY E M.D. at 1224 CC: [id number] DICTATION DATE: 05/26/16 1103 ROOF TRUSS BUILDER: 05/26/16 1244 DIS IN 05/27/16 [id number] [place] [address]
--- NOTE | 2016-06-03 12:24 | EC ---
PATIENT:THOMAS CORREA DATE OF SERVICE: 05/26/16 SEX: M MEDICAL RECORD: [id number] DATE OF : [birth year] LOCATION:D. D.211 AGE OF PATIENT: 65 ADMISSION DATE: 05/26/16 REFERRING PHYSICIAN: INTERPRETING PHYSICIAN: MALATHI ROPER M.D. ECHOCARDIOGRAM REPORT ECHO CHARGES 4 ECHO COMPLETE CLINICAL DIAGNOSIS: CHEST PAIN ECHOCARDIOGRAPHIC MEASUREMENTS (adult normal given) AC root (d.<3.7cm) 4.2 LV Septum d (<1.2 cm> 1.5 Valve Excursion 1.6 LV Septum (systole) 1.8 Left Atria (s.<4.0cm> 3.3 LVPW d(<1.2cm) 1.8 RV (d.<2.3cm) 3.4 LVPW (sytole) 1.7 LV diastole(<5.6CM) 4.8 MV E-F(>70mm/sec) LV systole 3.0 LVOT Diameter 1.5 MV exc.(>10mm) Est.ejection fraction (50-75%) Pericardial Effusion N DOPPLER: LVIT A 84.0 E 64.0 LA RVSP 49 LVOT 124 AOP1/2T Asc. Ao 148 RVOT RA PA 121 AV Gradient Peak 8.78 AV Mean 4.17 AV Area 1.5 MV Gradient Peak 2.9 MV Mean 1.22 MV Area COMMENTS: Embroidery Supervisor: Anyi CALIX [place]:2 Dr. Roper TAPE# PACS DATE OF SERVICE: 05/26/2016 INDICATION: Chest pain, positive enzymes. DESCRIPTION: Left ventricle demonstrates left ventricular hypertrophy. The distal anterior wall is mildly hypokinetic. There is mild LV dysfunction noted. Estimated ejection fraction is in the order of 45%. Mitral valve is structurally normal. There is no regurgitation or prolapse seen. Left atrium is normal size. The aortic valve leaflets are thickened. There is no stenosis or regurgitation seen. Right ventricle is mildly dilated. Tricuspid valve is ECHOCARDIOGRAM REPORT [id number] THOMAS CORREA normal. There is mild regurgitation seen. Right ventricular systolic pressure is elevated at 49 mmHg. There is no pericardial effusion seen. IMPRESSION: 1. Mild left ventricular dysfunction with ejection fraction of 45%. 2. Aortic valve sclerosis without stenosis. 3. Mild tricuspid regurgitation. TRANSINT:[id number] Voice Confirmation ID: [id number] DOCUMENT ID: [id number] MALATHI ROPER M.D. at 1224 CC: [id number] DICTATION DATE: 05/27/16729 CLASSIFICATION CLERK: 05/27/16 1155 DIS IN 05/27/16 [facility] [address] [id number]
== END 2016-05-27 14:54 | disposition home or self-care (01) | DRG 282 ==
LOC: D.ER 13:06 → D.M2 16:38 → OBSVTIME 16:38 → D.M2 16:38
PROVIDERS: Emergency Medicine; ADMIT Internal Medicine Cardiovascular Disease
PROC: B2121ZZ Fluoroscopy of Single Coronary Artery Bypass Graft using Low Osmolar Contrast (ICD-10-PCS; 2016-05-26)
PROC: B2151ZZ Fluoroscopy of Left Heart using Low Osmolar Contrast (ICD-10-PCS; 2016-05-26)
PROC: 4A023N7 Measurement of Cardiac Sampling and Pressure, Left Heart, Percutaneous Approach (ICD-10-PCS; 2016-05-26)
PROC: B2111ZZ Fluoroscopy of Multiple Coronary Arteries using Low Osmolar Contrast (ICD-10-PCS; principal; 2016-05-26 08:00)
DX: I21.4 Non-ST elevation (NSTEMI) myocardial infarction (principal); I25.110 Atherosclerotic heart disease of native coronary artery with unstable angina pectoris; I10 Essential (primary) hypertension; E78.5 Hyperlipidemia, unspecified; Z95.0 Presence of cardiac pacemaker; Z95.2 Presence of prosthetic heart valve

== ENCOUNTER → 2016-06-09 08:04 | Outpatient (CLI) | payer MEDICARE, MEDICAID ==
[2016-05-25 17:22] VITALS: BMI 28.2
[~2016-06-09 08:04] MED LIST changes: +METOPROLOL TART50 MG PO
== END | disposition home or self-care (01) ==
LOC: D.RT 08:00
DX: R06.02 Shortness of breath (principal); I27.2 Other secondary pulmonary hypertension; I71.2 Thoracic aortic aneurysm, without rupture

== ENCOUNTER → 2018-04-02 12:13 | Outpatient (CLI) | payer MEDICARE, MEDICAID ==
[2016-05-25 17:22] VITALS: BMI 28.2
== END | disposition home or self-care (01) ==
LOC: D.CT 12:13
DX: M51.16 Intervertebral disc disorders with radiculopathy, lumbar region (principal)

== ENCOUNTER → 2018-11-01 11:08 | Outpatient (CLI) | payer MEDICARE, MEDICAID ==
[2016-05-25 17:22] VITALS: BMI 28.2
== END | disposition home or self-care (01) ==
LOC: D.LABREF 11:08
PROVIDERS: ATTEND Orthopaedic Surgery
DX: M17.11 Unilateral primary osteoarthritis, right knee (principal)

== ENCOUNTER 2018-11-09 17:19 | Inpatient (IN) | payer MEDICARE, MEDICAID ==
[~2018-11-09] VITALS: Ht 170.2 cm; Wt 78.0 kg
[~2018-11-09 17:19] MED LIST changes: -SYNTHROID25 MCG PO; +SYNTHROID50 MCG PO
[2018-11-27] MEDS ORDERED: METOPROLOL TART25 MG PO (14:57)
[2018-11-27] MEDS ORDERED: DESMOPRESSIN A0.2 MG PO (14:58)
[2018-11-27] MEDS ORDERED: KRILL OIL 1,001 EAC1 PO (15:01)
[2018-11-27] MEDS ORDERED: CENTRUM MEN'S1 EACH PO (15:01)
[2018-11-27] MEDS ORDERED: MIRALAX17 GM PO (15:02)
[2018-11-27] MEDS ORDERED: PROTONIX40 MG PO (15:03)
[2018-11-27] MEDS ORDERED: NAPROXEN250 MG PO (15:04)
[2018-11-28] MEDS ORDERED: MIRALAX17 GM PO (10:54)
[2018-11-28] MEDS ORDERED: NAPROXEN250 MG PO (10:55)
[2018-11-28] MEDS ORDERED: ACETAMINOPHEN325 MG PO (10:55)
[2018-11-28] MEDS ORDERED: ULTRAM50 MG PO (10:56)
[2018-11-28 12:11] LABS: BASOPHILS 0.5 % (0-2); EOSINOPHILS 4.7 % (0-7); HEMATOCRIT 42.8 % (42.0-54.0); HEMOGLOBIN 14.7 g/dL (13.5-17.5); IMMATURE GRANULOCYTES 0.2 % (0-5); MCH 32.5 pg (26.0-34.0); MCHC 34.3 g/dL (31.0-37.0); MCV 94.5 fL (80.0-100.0); MEAN PLATELET VOLUME 9.7 fL (7.4-10.4); NEUTROPHILS 62.6 % (40-80); RBC 4.53 10x6/uL (4.20-6.10); RDW 13.3 % (11.5-14.5); WBC 6.4 10x3/uL (4.8-10.8)
[2018-11-28 12:13] LABS: APPEARANCE CLEAR (CLEAR); BILIRUBIN NEGATIVE (NEGATIVE); COLOR YELLOW (YELLOW); GLUCOSE NEGATIVE (NEGATIVE); KETONE NEGATIVE (NEGATIVE); NITRITE NEGATIVE (NEGATIVE); PROTEIN NEGATIVE (NEGATIVE); SPECIFIC GRAVITY 1.015 (1.005-1.020); UROBILINOGEN NORMAL (NORMAL)
[2018-11-28 12:14] LABS: PLATELET COUNT 219 10x3/uL (130-400)
[2018-11-28 12:18] LABS: CALC OSMOLALITY 275 mosm/kg (275-300); CARBON DIOXIDE 31.3 mmol/L (21.0-32.0); CHLORIDE - SERUM 101 mmol/L (98-107); CREATININE - SERUM 0.8 mg/dL (0.6-1.3); GLUCOSE 111 mg/dL (74-106); POTASSIUM - SERUM 4.4 mmol/L (3.5-5.1); SODIUM 137 mmol/L (136-145); UREA NITROGEN 14 mg/dL (7-18); eGFR NON AFRICAN AMERICAN > 90 mL/min (90-120)
[2018-11-28 12:35] LABS: APTT 29.8 SECONDS (22.8-39.4)
[2018-11-28 12:36] LABS: INR 0.97 (0.85-1.17); PROTIME 12.4 SECONDS (11.6-15.0)
[2018-12-04] VITALS (13 sets, daily range): BP systolic 90–143; BP diastolic 50–78; BMI 27.0
--- NOTE | 2018-12-04 08:37 | NUR ---
PLASMA BLADE SET TO 6/8 BOVIE PAD RIGHT THIGH [id number] EXP 03/07/20 LAMINAR FLOW NOT IN USE PREPPED RIGHT LEG FROM UPPER THIGH TO TOES CIRCUMFERENTIALLY WITH HIBICLENS AND ALCOHOL. DRIED WITH TOWELL AND PREPPED WITH CHLORAPREP. TOBRAMYCIN 1.2GM AND VANCOMYCIN 1GM APPLIED TO WOUND BED. TRAFFIC MONITORED IN AND OUT OF ROOM AND KEPT TO A MINIMUM.
--- NOTE | 2018-12-04 11:05 | NUR ---
PATIENT ADMITTED TO ROOM 2212. ADMISSION ASSESSMENT COMPLETE. ICE APPLIED TO RIGHT KNEE. SCD TO LEFT LEG. PLEXI BOOT TO RIGHT FOOT. IV ABX GIVEN. ELIQUIS GIVEN. FALL PRECAUTIONS IN PLACE. DENIES NEEDS AT THIS TIME. BED LOW. CALL BARNETT AND PERSONAL ITEMS IN REACH. FRIEND AT BEDSIDE. WILL CONTINUE TO MONITOR.
--- NOTE | 2018-12-04 11:09 | NUR ---
HEART MONITOR PLACED ON PATIENT. INCENTIVE SPIROMETER GIVEN AND EDUCATION PROVIDED. PATIENT PROVIDED RETURN TEACH BACK. EDUCATION PROVIDED ON COUGH AND DEEP BREATHING. RETURNED DEMONSTRATIONS. MONITORING VITALS PER PROTOCOL.
--- NOTE | 2018-12-04 12:20 | NUR ---
PATIENT SLEEPING. VITALS REMAIN STABLE. WILL CONTINUE TO MONITOR.
--- NOTE | 2018-12-04 13:27 | NUR ---
SPOKE WITH DR SINGLETARY WHO STATES START CPM AFTER DINNER TONIGHT AT 50 FLEXION. INCREASE 5-10 Q DAY TOLERATED. EXTENSION AT ZERO.
--- NOTE | 2018-12-04 14:24 | NUR ---
RESTING IN BED. VITALS REMAIN STABLE. DENIES NEEDS. WILL CONTINUE TO MONITOR.
--- NOTE | 2018-12-04 15:27 | NUR ---
PATIENT SLEEPING. VITALS REMAIN STABLE. WILL CONTINUE TO MONITOR.
--- NOTE | 2018-12-04 18:40 | NUR ---
RESTING IN BED. DENIES PAIN. DENIES NEEDS. BED LOW. FALL PRECAUTIONS IN PLACE. CALL BARNETT AND PERSONAL ITEMS IN REACH.
--- NOTE | 2018-12-04 19:30 | NUR ---
LYING IN BED. ALERT AND ORIENTED X4. RESP EVEN AND NONLABORED. TELEMETRY SHOWS SR WITH RATE OF 66 WITH BBB. O2 @ 3L/NC. DRSG NOTED TO RT KNEE WITH BLOODY DRAINAGE NOTED. PLEXI NOTED TO RT FOOT, ARABELLA TO RLE, SCD TO LLE. 1/2 NS @ 50 MLHR INFUSING IN RT HAND. DENIES PAIN. SR ELEVATED X2. CL IN REACH.
--- NOTE | 2018-12-05 01:04 | NUR ---
ASSISTED ONTO BEDPAN TO VOID. PT HAS HAD GENDER REASSIGNMENT SURGERY IN THE PAST. CL IN REACH. DENIES PAIN.
[2018-12-05 01:14] VITALS: BP 118/62
[2018-12-05 05:15] VITALS: BP 124/54
--- NOTE | 2018-12-05 05:30 | NUR ---
DRSG TO RT KNEE HAS BLOODY DRAINAGE LEAKING THROUGH KWAN WRAP MAINLY ON POSTERIOR SIDE. ARABELLA HOSE REMOVED. KWAN WRAP REMOVED AND APPLIED ABD PAD X2 AND NEW KWAN WRAP APPLIED. PT PLACED ON CPM. CL IN REACH.
[2018-12-05 06:14] LABS: HEMATOCRIT 29.5 % (42.0-54.0); HEMOGLOBIN 9.7 g/dL (13.5-17.5); MCH 31.2 pg (26.0-34.0); MCHC 32.9 g/dL (31.0-37.0); MCV 94.9 fL (80.0-100.0); MEAN PLATELET VOLUME 9.9 fL (7.4-10.4); RBC 3.11 10x6/uL (4.20-6.10); RDW 13.7 % (11.5-14.5)
--- NOTE | 2018-12-05 07:29 | NUR ---
ALERT AND ORIENTED. LUNGS CLEAR BILATERALLY. HEART SOUNDS S1 AND S2 HEARD IN ALL KEMP. BOWEL SOUNDS ACTIVE X 4. DRSG TO RIGHT KNEE C/D/I. IV TO RIGHT HAND PATENT WITHOUT REDNESS. TELEMETRY IN PLACE. O2 IN PLACE AT 3L. BED ALARM ON. CALL BARNETT AND PERSONAL ITEMS IN REACH. WILL CONTINUE TO MONITOR.
[2018-12-05 09:04] VITALS: BP 133/54
--- NOTE | 2018-12-05 10:09 | NUR ---
SPOKE WITH PHARMACY WHO STATES WILL BRING OXY IR 5 TO FLOOR.
--- NOTE | 2018-12-05 11:59 | NUR ---
SITTING IN CHAIR AT BEDSIDE. DENIES NEEDS.
--- NOTE | 2018-12-05 11:59 | NUR ---
O2 REMOVED FROM PATIENT. SAT 99% ON ROOM AIR. SAT 97% AFTER WALKING WITH PT.
[2018-12-05 12:46] VITALS: BP 128/57
[2018-12-05 13:58] VITALS: Ht 170.2 cm; Wt 78.0 kg
--- NOTE | 2018-12-05 14:10 | NUR ---
IV INFITLTRATED TO RIGHT HAND. ATTEMPTED TO RESITE TO RFA WITH NO SUCCESS AFTER [address] SINGLETARY IN ROOM STATES PATIENT DOES NOT NEED IV SINCE FINISHED WITH ABX.
--- NOTE | 2018-12-05 14:27 | NUR ---
ICE APPLIED TO RIGHT KNEE PER DR SINGLETARY.
--- NOTE | 2018-12-05 14:55 | NUR ---
STATES PAIN DECREASING AFTER PRN OXY 5.
--- NOTE | 2018-12-05 15:09 | NUR ---
RESTING IN BED. DENIES NEEDS. WILL CONTINUE TO MONITOR.
[2018-12-05 16:38] VITALS: BP 135/63
--- NOTE | 2018-12-05 18:11 | NUR ---
RESTING IN BED. DENIES NEEDS. WILL CONTINUE TO MONITOR.
[2018-12-05 20:00] VITALS: BP 150/75
--- NOTE | 2018-12-05 20:30 | NUR ---
A&O X 4. CPM REMOVED. REPORTS PAIN OF 9/10. REQUESTS REMOVAL OF BANDAGE DUE TO SWELLING. KWAN WRAP LOOSENED, ICE APPLIED. DENIES FURTHER NEEDS, WILL CONTINUE TO MONITOER.
[2018-12-06 04:00] VITALS: BP 145/70
--- NOTE | 2018-12-06 04:25 | NUR ---
I have reviewed this patient and I concur with the Shift Assessment completed by the Licensed Practical Nurse today this shift.
[2018-12-06 05:06] LABS: HEMATOCRIT 27.2 % (42.0-54.0); HEMOGLOBIN 9.1 g/dL (13.5-17.5); MCH 31.5 pg (26.0-34.0); MCHC 33.5 g/dL (31.0-37.0); MCV 94.1 fL (80.0-100.0); MEAN PLATELET VOLUME 9.9 fL (7.4-10.4); RBC 2.89 10x6/uL (4.20-6.10); RDW 13.3 % (11.5-14.5)
[2018-12-06 05:46] LABS: WBC 5.6 10x3/uL (4.8-10.8)
--- NOTE | 2018-12-06 08:00 | NUR ---
PT RESTING IN BED. NO SIGNS OF DISTRESS. NO IV ACCESS AT THIS TIME. HAS INCISION TO RIGHT KNEE. COMPLAINS OF PAIN. MEDICATION GIVEN. ON TELEMETRY 80 PACED. DENIES ANY FURTHER NEED AT THIS TIME. CALL LIGHT IN REACH. BED LOW POSITION. FAMILY AT BEDSIDE.
[2018-12-06 09:48] VITALS: BP 156/78
--- NOTE | 2018-12-06 11:43 | MORECARE ---
CASE MANAGEMENT DISCHARGE SUMMARY PATIENT: THOMAS CORREA UNIT: [id number] ADM DATE: 12/04/18 AGE: 67 : 48 SEX: M ROOM/BED: D.2212 AUTHOR: MARÍA OSORIO PHYSICIAN: REFERRING PHYSICIAN: YUMIKO SINGLETARY DO DATE OF SERVICE: 12/06/18 Discharge Plan Patient Name: THOMAS CORREA Facility: [facility]:[place] : 1950 Planned Disposition: Senior Living Facility Anticipated Discharge Date: Discharge Date: Expected LOS: Initial Reviewer: [email or web address] Initial Review Date: 12/04/2018 Generated: 12/06/18 12:43 pm DCPIA - Discharge Planning Initial Assessment Updated by [email or web address]: Naty Soto on 12/06/18 11:39 am * Is the patient Alert and Oriented? Yes * How many steps to enter\exit or inside your home? * PCP KARRI * [facility] * Preadmission Environment Home with Family * ADLs Independent * Equipment Bedside Commode Cane Elevated [place] Seat Rolling Walker Walker * Other Equipment LIFT CHAIR * List name and contact numbers for known caregivers / representatives who currently or will assist patient after discharge: ARCELIA VASQUEZ [phone] * Verbal permission to speak to the caregivers and representatives has been obtained from the patient. N/A * Community resources currently utilized None * Additional services required to return to the preadmission environment? Yes * Can the patient safely return to the preadmission environment? No * Has this patient been hospitalized within the prior 30 days at any hospital? No External Providers External Provider: [facility] Next Contact Date: Service Request Date: Service Type: Resolution: Reviewer: Comments: Patient Name: THOMAS CORREA Page [phone] at 1143 All edits/amendments must be made on the electronic document DICTATION DATE: 12/06/18 1143 AERIAL TRAM OPERATOR: ROSA ELENA 12/06/18 1143 RPT#: [id number] DC DATE: STATUS: ADM IN [facility] [address] [place] [address] END OF REPORT
--- NOTE | 2018-12-06 11:51 | MORECARE ---
CASE MANAGEMENT DISCHARGE SUMMARY PATIENT: THOMAS CORREA UNIT: [id number] ADM DATE: 12/04/18 AGE: 67 : 48 SEX: M ROOM/BED: D.2212 AUTHOR: MARÍA OSORIO PHYSICIAN: REFERRING PHYSICIAN: YUMIKO SINGLETARY DO DATE OF SERVICE: 12/06/18 Discharge Plan Patient Name: THOMAS CORREA Facility: [facility]:[place] : 1950 Planned Disposition: Senior Care Facility Anticipated Discharge Date: Discharge Date: Expected LOS: Initial Reviewer: [email or web address] Initial Review Date: 12/04/2018 Generated: 12/06/18 12:51 pm Comments DCP- Discharge Planning Updated by [email or web address]: Naty Soto on 12/06/18 10:[address] Patient Name: THOMAS CORREA Admission Status: Elective Accout number: [id number] Admission Date: 12-04-2018 : 1950 Admission Diagnosis: Attending: YUMIKO SINGLETARY Current LOS: 2 Anticipated DC Date: Planned Disposition: Senior Care Facility Primary Insurance: [facility] MEDICARE SOLUTIONS Discharge Planning Comments: CM met with patient to complete initial dc planning assessment. CM educated patient on the CM role and verbal consent given by patient to complete assessment. Patient lives at home with his spouse where he was independent with his care. At discharge patient plans to discharge to skilled facility [facility] for the [facility] and feels this is a safe discharge. CM discussed availability of home health, rehab services, and medical equipment. Will go to the [facility] once auth is received. Patient has a cane, walker, left chair, elevated toilet seat [facility]. IMM served and explained. I called the [facility] and spoke with Marta. Patient denied known discharge needs at this time. CM will continue to follow and will assist as needed with dc plans/needs. Territory Account Manager: Naty Soto DCPIA - Discharge Planning Initial Assessment Updated by [email or web address]: Naty Soto on 12/06/18 11:39 am * Is the patient Alert and Oriented? Yes * How many steps to enter\exit or inside your home? * PCP KARRI * [facility]acy [facility] * Preadmission Environment Home with Family * ADLs Independent * Equipment Bedside Commode Cane Elevated [place] Seat Rolling Walker Walker * Other Equipment LIFT CHAIR * List name and contact numbers for known caregivers / representatives who currently or will assist patient after discharge: ARCELIA VASQUEZ [phone] * Verbal permission to speak to the caregivers and representatives has been obtained from the patient. N/A * Community resources currently utilized None * Additional services required to return to the preadmission environment? Yes * Can the patient safely return to the preadmission environment? No * Has this patient been hospitalized within the prior 30 days at any hospital? No Coverage Notice Reviewer: [id number] Elenita Soto Notice Issued Date-Time: 12/06/2018 11:30 Notice Type: IM Discharge Notice Notice Delivered To: Patient Relationship to Patient: Card Decorator Name: Delivery Method: HAND - Hand Delivered Ayde Days: Prior Verbal Notification: Recipient Understood Notice: Yes Recipient Signature: Yes Med Rec Note Co-signed by Attending: Coverage Notice Comment: Reviewer: [email or web address] Elenita Soto Notice Issued Date-Time: 12/06/2018 11:30 Notice Type: Patient Choice Letter Notice Delivered To: Patient Relationship to Patient: Card Decorator Name: Delivery Method: HAND - Hand Delivered Ayde Days: Prior Verbal Notification: Recipient Understood Notice: Yes Recipient Signature: Yes Med Rec Note Co-signed by Attending: Coverage Notice Comment: Last DP export: 12/06/18 10:43 Patient Name: THOMAS CORREA Page [phone] at 1151 All edits/amendments must be made on the electronic document DICTATION DATE: 12/06/18 115 IMAGING SERVICES DIRECTOR: ROSA ELENA 12/06/18 115 RPT#: [id number] DC DATE: STATUS: ADM IN [facility] [address] [place] [address] END OF REPORT
[2018-12-06 12:29] VITALS: BP 117/58
--- NOTE | 2018-12-06 15:38 | NUR ---
OT NOTE: PT COMPLETED BED MOB TASKS WITH MIN/MOD A. PT REQUIRED MAX A FOR MARISA SHOES. PT COMPLETED GROOMING TASK WITH SET UP. THANK YOU, NICKY REN
[2018-12-06 16:23] VITALS: BP 137/78
[2018-12-06 20:00] VITALS: BP 114/60
--- NOTE | 2018-12-06 21:00 | NUR ---
A&0 X 4. CPM REMOVED. PT TOLERATED WELL. AMBULATES WITH WALKER INDEPENDENTLY. DENIES NEEDS AT THIS TIME, WILL CONTINUE TO MONITOR.
[2018-12-07] VITALS: BP 136/64
--- NOTE | 2018-12-07 01:30 | NUR ---
PT FOUND ON FLOOR. REPORTS HE SLIPPED AND FELL TRANSFERING FROM BSC TO BED, DENIES USING WALKER. NO OBVIOUS INJURIES NOTED, PT REPORTS A SORE BOTTOM, BUT DENIES HITTING HEAD, SURGICAL AREA, OR ANY OTHER BODY PART. 1PERSON ASSIST TO BED. LOW POSITION, SIDE RAILS X 2, CL IN REACH, BED ALARM ON. DR GRIGGS NOTIFIED. NO NO ORDERS ADDED. WILL MONITOR CLOSELY.
--- NOTE | 2018-12-07 02:44 | NUR ---
I have reviewed this patient and I concur with the Shift Assessment completed by the Licensed Practical Nurse today this shift.
[2018-12-07 04:00] VITALS: BP 97/48
--- NOTE | 2018-12-07 06:36 | NUR ---
ARCELIA VASQUEZ NOTIFIED OF PT FALL DURING NIGHT.
[2018-12-07] MEDS ORDERED: KEFLEX500 MG PO (07:33)
[2018-12-07] MEDS ORDERED: ELIQUIS2.5 MG PO (07:33)
[2018-12-07] MEDS ORDERED: OXYCODONE HCL5 M1 PO (07:34)
[2018-12-07] MEDS ORDERED: VISTARIL50 MG PO (07:34)
[2018-12-07 08:35] VITALS: BP 98/51
--- NOTE | 2018-12-07 09:00 | NUR ---
PT RESTING IN BED. NO SIGNS OF DISTRESS. NO IV AT TIME. ON TELEMETRY 95 SR. COMPLAINS OF PAIN MEDICATIONS GIVEN. PT UP TO CHAIR WITH PHYSICAL THERAPY. STARTING TO COMPLAIN OF RIGHT HIP PAIN. CALLED DR SINGLETARY AND GOT NEW ORDERS FOR PATENT. DENIES ANY FURTHER NEED AT THIS TIME. CALL LIGHT IN REACH. BED LOW POSITION. NO FAMILY AT BEDSIDE.
--- NOTE | 2018-12-07 09:49 | MORECARE ---
CASE MANAGEMENT DISCHARGE SUMMARY PATIENT: THOMAS CORREA UNIT: [id number] ADM DATE: 12/04/18 AGE: 67 : 48 SEX: M ROOM/BED: D.2212 AUTHOR: MARÍA OSORIO PHYSICIAN: REFERRING PHYSICIAN: YUMIKO SINGLETARY DO DATE OF SERVICE: 12/07/18 Discharge Plan Patient Name: THOMAS CORREA Facility: [facility]:[place] : 1950 Planned Disposition: Jail Facility Anticipated Discharge Date: Discharge Date: Expected LOS: Initial Reviewer: [email or web address] Initial Review Date: 12/04/2018 Generated: 12/07/18 10:49 am Comments DCP- Discharge Planning Updated by [email or web address]: Nayt Soto on 12/06/18 10:[address] Patient Name: THOMAS CORREA Admission Status: Elective Accout number: [id number] Admission Date: 12-04-2018 : 1950 Admission Diagnosis: Attending: YUMIKO SINGLETARY Current LOS: 2 Anticipated DC Date: Planned Disposition: Jail Facility Primary Insurance: [facility] MEDICARE SOLUTIONS Discharge Planning Comments: CM met with patient to complete initial dc planning assessment. CM educated patient on the CM role and verbal consent given by patient to complete assessment. Patient lives at home with his spouse where he was independent with his care. At discharge patient plans to discharge to skilled facility [facility] for the [facility] and feels this is a safe discharge. CM discussed availability of home health, rehab services, and medical equipment. Will go to the [facility] once auth is received. Patient has a cane, walker, left chair, elevated toilet seat [facility]. IMM served and explained. I called the [facility] and spoke with Marta. Patient denied known discharge needs at this time. CM will continue to follow and will assist as needed with dc plans/needs. Size Cutter: Naty Soto DCPIA - Discharge Planning Initial Assessment Updated by [id number]: Naty Soto on 12/06/18 11:39 am * Is the patient Alert and Oriented? Yes * How many steps to enter\exit or inside your home? * PCP KARRI * [facility]acy [facility] * Preadmission Environment Home with Family * ADLs Independent * Equipment Bedside Commode Cane Elevated [place] Seat Rolling Walker Walker * Other Equipment LIFT CHAIR * List name and contact numbers for known caregivers / representatives who currently or will assist patient after discharge: ARCELIA VASQUEZ [phone] * Verbal permission to speak to the caregivers and representatives has been obtained from the patient. N/A * Community resources currently utilized None * Additional services required to return to the preadmission environment? Yes * Can the patient safely return to the preadmission environment? No * Has this patient been hospitalized within the prior 30 days at any hospital? No External Providers External Provider: [facility] Next Contact Date: Service Request Date: Service Type: Resolution: Reviewer: Comments: Coverage Notice Reviewer: [email or web address] Elenita Soto Notice Issued Date-Time: 12/06/2018 11:30 Notice Type: IM Discharge Notice Notice Delivered To: Patient Relationship to Patient: Wax Ball Molder Name: Delivery Method: HAND - Hand Delivered Ayde Days: Prior Verbal Notification: Recipient Understood Notice: Yes Recipient Signature: Yes Med Rec Note Co-signed by Attending: Coverage Notice Comment: Reviewer: [id number] Elenita Soto Notice Issued Date-Time: 12/06/2018 11:30 Notice Type: Patient Choice Letter Notice Delivered To: Patient Relationship to Patient: Wax Ball Molder Name: Delivery Method: HAND - Hand Delivered Ayde Days: Prior Verbal Notification: Recipient Understood Notice: Yes Recipient Signature: Yes Med Rec Note Co-signed by Attending: Coverage Notice Comment: Last DP export: 12/06/18 10:51 Patient Name: THOMAS CORREA Page [phone] at 0949 All edits/amendments must be made on the electronic document DICTATION DATE: 12/07/18948 COMMUNITY CULTURAL DEVELOPMENT OFFICER: ROSA ELENA 12/07/18948 RPT#: [id number] DC DATE: STATUS: ADM IN [facility] [address] [place] [address] END OF REPORT
--- NOTE | 2018-12-07 09:58 | MORECARE ---
CASE MANAGEMENT DISCHARGE SUMMARY PATIENT: THOMAS CORREA UNIT: [id number] ADM DATE: 12/04/18 AGE: 67 : 48 SEX: M ROOM/BED: D.2212 AUTHOR: MARÍA OSORIO PHYSICIAN: REFERRING PHYSICIAN: YUMIKO SINGLETARY DO DATE OF SERVICE: 12/07/18 Discharge Plan Patient Name: THOMAS CORREA Facility: [facility]:[place] : 1950 Planned Disposition: Fdc Facility Anticipated Discharge Date: Discharge Date: Expected LOS: Initial Reviewer: [id number] Initial Review Date: 12/04/2018 Generated: 12/07/18 10:57 am Comments DCP- Discharge Planning Updated by [email or web address]: Naty Soto on 12/07/18 8:[address] PATIENT WAS ACCEPTED TO THE [facility], BUT HE IS WALKING MORE THAN 250 FT NOW AND REQUESTING TO GO HOME WITH HOME HEALTH. HE DOES NOT HAVE A PREFERENCE FOR HOME HEALTH. WILL SEE WHO TAKES HIS INSURANCE AND HAS AVAIBILITY DCP- Discharge Planning Updated by [email or web address]: Naty Soto on 12/06/18 10:[address] Patient Name: THOMAS CORREA Admission Status: Elective Accout number: [id number] Admission Date: 12-04-2018 : 1950 Admission Diagnosis: Attending: YUMIKO SINGLETARY Current LOS: 2 Anticipated DC Date: Planned Disposition: Fdc Facility Primary Insurance: [facility] MEDICARE SOLUTIONS Discharge Planning Comments: CM met with patient to complete initial dc planning assessment. CM educated patient on the CM role and verbal consent given by patient to complete assessment. Patient lives at home with his spouse where he was independent with his care. At discharge patient plans to discharge to skilled facility [facility] for the [facility] and feels this is a safe discharge. CM discussed availability of home health, rehab services, and medical equipment. Will go to the [facility] once auth is received. Patient has a cane, walker, left chair, elevated toilet seat [facility]. IMM served and explained. I called the [facility] and spoke with Marta. Patient denied known discharge needs at this time. CM will continue to follow and will assist as needed with dc plans/needs. Staff Internist Office Based Only: Naty Soto DCPIA - Discharge Planning Initial Assessment Updated by [email or web address]: Naty Soto on 12/06/18 11:39 am * Is the patient Alert and Oriented? Yes * How many steps to enter\exit or inside your home? * PCP KARRI * [facility]acy [facility] * Preadmission Environment Home with Family * ADLs Independent * Equipment Bedside Commode Cane Elevated [place] Seat Rolling Walker Walker * Other Equipment LIFT CHAIR * List name and contact numbers for known caregivers / representatives who currently or will assist patient after discharge: ARCELIA CHRISTINA [phone] * Verbal permission to speak to the caregivers and representatives has been obtained from the patient. N/A * Community resources currently utilized None * Additional services required to return to the preadmission environment? Yes * Can the patient safely return to the preadmission environment? No * Has this patient been hospitalized within the prior 30 days at any hospital? No Coverage Notice Reviewer: [email or web address] Elenita Soto Notice Issued Date-Time: 12/06/2018 11:30 Notice Type: IM Discharge Notice Notice Delivered To: Patient Relationship to Patient: Electrical Controls Engineer Name: Delivery Method: HAND - Hand Delivered Ayde Days: Prior Verbal Notification: Recipient Understood Notice: Yes Recipient Signature: Yes Med Rec Note Co-signed by Attending: Coverage Notice Comment: Reviewer: [id number] Elenita Soto Notice Issued Date-Time: 12/06/2018 11:30 Notice Type: Patient Choice Letter Notice Delivered To: Patient Relationship to Patient: Electrical Controls Engineer Name: Delivery Method: HAND - Hand Delivered Ayde Days: Prior Verbal Notification: Recipient Understood Notice: Yes Recipient Signature: Yes Med Rec Note Co-signed by Attending: Coverage Notice Comment: Last DP export: 12/07/18 8:50 Patient Name: THOMAS CORREA Page [phone] at 0958 All edits/amendments must be made on the electronic document DICTATION DATE: 12/07/18956 CIRCLE SHEAR OPERATOR: ROSA ELENA 12/07/18956 RPT#: [id number] DC DATE: STATUS: ADM IN [facility] [address] [place] [address] END OF REPORT
--- NOTE | 2018-12-07 10:47 | MORECARE ---
CASE MANAGEMENT DISCHARGE SUMMARY PATIENT: THOMAS CORREA UNIT: [id number] ADM DATE: 12/04/18 AGE: 67 : 48 SEX: M ROOM/BED: D.2212 AUTHOR: JO,DOC PHYSICIAN: REFERRING PHYSICIAN: YUMIKO SINGLETARY DO DATE OF SERVICE: 12/07/18 Discharge Plan Patient Name: THOMAS CORREA Facility: [facility]:[place] : 1950 Planned Disposition: Assisted Facility Anticipated Discharge Date: Discharge Date: Expected LOS: Initial Reviewer: [email or web address] Initial Review Date: 12/04/2018 Generated: 12/07/18 11:47 am Comments DCP- Discharge Planning Updated by [email or web address]: Naty Soto on 12/07/18 9:[address] [facility] OUT OF NETWORK, REFERRAL SENT TO [facility] DCP- Discharge Planning Updated by [email or web address]: Naty Soto on 12/07/18 8:[address] PATIENT WAS ACCEPTED TO THE [facility], BUT HE IS WALKING MORE THAN 250 FT NOW AND REQUESTING TO GO HOME WITH HOME HEALTH. HE DOES NOT HAVE A PREFERENCE FOR HOME HEALTH. WILL SEE WHO TAKES HIS INSURANCE AND HAS AVAIBILITY DCP- Discharge Planning Updated by [email or web address]: Naty Soto on 12/06/18 10:[address] Patient Name: THOMAS CORREA Admission Status: Elective Accout number: [id number] Admission Date: 12-04-2018 : 1950 Admission Diagnosis: Attending: YUMIKO SINGLETARY Current LOS: 2 Anticipated DC Date: Planned Disposition: Assisted Facility Primary Insurance: [facility] MEDICARE SOLUTIONS Discharge Planning Comments: CM met with patient to complete initial dc planning assessment. CM educated patient on the CM role and verbal consent given by patient to complete assessment. Patient lives at home with his spouse where he was independent with his care. At discharge patient plans to discharge to skilled facility [facility] for the [facility] and feels this is a safe discharge. CM discussed availability of home health, rehab services, and medical equipment. Will go to the [facility] once auth is received. Patient has a cane, walker, left chair, elevated toilet seat [facility]. IMM served and explained. I called the [facility] and spoke with Marta. Patient denied known discharge needs at this time. CM will continue to follow and will assist as needed with dc plans/needs. Can Pusher: Naty Soto DCPIA - Discharge Planning Initial Assessment Updated by [email or web address]: Naty Soto on 12/06/18 11:39 am * Is the patient Alert and Oriented? Yes * How many steps to enter\exit or inside your home? * PCP KARRI * [facility]acy [facility] * Preadmission Environment Home with Family * ADLs Independent * Equipment Bedside Commode Cane Elevated [place] Seat Rolling Walker Walker * Other Equipment LIFT CHAIR * List name and contact numbers for known caregivers / representatives who currently or will assist patient after discharge: ARCELIA VASQUEZ [phone] * Verbal permission to speak to the caregivers and representatives has been obtained from the patient. N/A * Community resources currently utilized None * Additional services required to return to the preadmission environment? Yes * Can the patient safely return to the preadmission environment? No * Has this patient been hospitalized within the prior 30 days at any hospital? No External Providers [facility] Provider[facility] Next Contact Date: Service Request Date: Service Type: Resolution: Reviewer: Comments: Coverage Notice Reviewer: [email or web address] Elenita Soto Notice Issued Date-Time: 12/06/2018 11:30 Notice Type: IM Discharge Notice Notice Delivered To: Patient Relationship to Patient: Hop Strainer Name: Delivery Method: HAND - Hand Delivered Ayde Days: Prior Verbal Notification: Recipient Understood Notice: Yes Recipient Signature: Yes Med Rec Note Co-signed by Attending: Coverage Notice Comment: Reviewer: [email or web address] Elenita Soto Notice Issued Date-Time: 12/06/2018 11:30 Notice Type: Patient Choice Letter Notice Delivered To: Patient Relationship to Patient: Hop Strainer Name: Delivery Method: HAND - Hand Delivered Ayde Days: Prior Verbal Notification: Recipient Understood Notice: Yes Recipient Signature: Yes Med Rec Note Co-signed by Attending: Coverage Notice Comment: Last DP export: 12/07/18 8:58 Patient Name: THOMAS CORREA Page [phone] at 1047 All edits/amendments must be made on the electronic document DICTATION DATE: 12/07/181046 MANAGER DOCUMENT CONTROL: ROSA ELENA 12/07/181046 RPT#: [id number] DC DATE: STATUS: ADM IN [facility] [address] [place] [address] END OF REPORT
[2018-12-07 13:14] VITALS: BP 102/62
--- NOTE | 2018-12-07 14:38 | MORECARE ---
CASE MANAGEMENT DISCHARGE SUMMARY PATIENT: THOMAS CORREA UNIT: [id number] ADM DATE: 12/04/18 AGE: 67 : 48 SEX: M ROOM/BED: D.2212 AUTHOR: JO,DOC PHYSICIAN: REFERRING PHYSICIAN: YUMIKO SINGLETARY DO DATE OF SERVICE: 12/07/18 Discharge Plan Patient Name: THOMAS CORREA Facility: [facility]:[place] : 1950 Planned Disposition: Usp Facility Anticipated Discharge Date: Discharge Date: Expected LOS: Initial Reviewer: [email or web address] Initial Review Date: 12/04/2018 Generated: 12/07/18 3:38 pm Comments DCP- Discharge Planning Updated by [email or web address]: Naty Soto on 12/07/18 1:[address] patient is not discharging today, he has a fx hip DCP- Discharge Planning Updated by [email or web address]: Naty Soto on 12/07/18 9:[address] [facility] IS OUT OF NETWORK, REFERRAL SENT TO [facility] DCP- Discharge Planning Updated by [email or web address]: Naty Soto on 12/07/18 8:[address] PATIENT WAS ACCEPTED TO THE [facility], BUT HE IS WALKING MORE THAN 250 FT NOW AND REQUESTING TO GO HOME WITH HOME HEALTH. HE DOES NOT HAVE A PREFERENCE FOR HOME HEALTH. WILL SEE WHO TAKES HIS INSURANCE AND HAS AVAIBILITY DCP- Discharge Planning Updated by [email or web address]: Naty Soto on 12/06/18 10:[address] Patient Name: THOMAS CORREA Admission Status: Elective Accout number: [id number] Admission Date: 12-04-2018 : 1950 Admission Diagnosis: Attending: YUMIKO SINGLETARY Current LOS: 2 Anticipated DC Date: Planned Disposition: Usp Facility Primary Insurance: [facility] MEDICARE SOLUTIONS Discharge Planning Comments: CM met with patient to complete initial dc planning assessment. CM educated patient on the CM role and verbal consent given by patient to complete assessment. Patient lives at home with his spouse where he was independent with his care. At discharge patient plans to [facility] and feels this is a safe discharge. CM discussed availability of home health, rehab services, and medical equipment. Will go to the [facility] once auth is received. Patient has a cane, walker, left chair, elevated toilet seat BSC. IMM served and explained. I called the [facility] and spoke with Marta. Patient denied known discharge needs at this time. CM will continue to follow and will assist as needed with dc plans/needs. Services Coordinator: Naty Soto DCPIA - Discharge Planning Initial Assessment Updated by [email or web address]: Naty Soto on 12/06/18 11:39 am * Is the patient Alert and Oriented? Yes * How many steps to enter\exit or inside your home? * PCP KARRI * Pharmacy [facility] * Preadmission Environment Home with Family * ADLs Independent * Equipment Bedside Commode Cane Elevated [place] Seat Rolling Walker Walker * Other Equipment LIFT CHAIR * List name and contact numbers for known caregivers / representatives who currently or will assist patient after discharge: ARCELIA VASQUEZ [phone] * Verbal permission to speak to the caregivers and representatives has been obtained from the patient. N/A * Community resources currently utilized None * Additional services required to return to the preadmission environment? Yes * Can the patient safely return to the preadmission environment? No * Has this patient been hospitalized within the prior 30 days at any hospital? No Coverage Notice Reviewer: [email or web address] Elenita Soto Notice Issued Date-Time: 12/06/2018 11:30 Notice Type: IM Discharge Notice Notice Delivered To: Patient Relationship to Patient: Contact Lens Polisher Name: Delivery Method: HAND - Hand Delivered Ayde Days: Prior Verbal Notification: Recipient Understood Notice: Yes Recipient Signature: Yes Med Rec Note Co-signed by Attending: Coverage Notice Comment: Reviewer: [email or web address] Elenita Soto Notice Issued Date-Time: 12/06/2018 11:30 Notice Type: Patient Choice Letter Notice Delivered To: Patient Relationship to Patient: Contact Lens Polisher Name: Delivery Method: HAND - Hand Delivered Ayde Days: Prior Verbal Notification: Recipient Understood Notice: Yes Recipient Signature: Yes Med Rec Note Co-signed by Attending: Coverage Notice Comment: Last DP export: 12/07/18 9:47 Patient Name: THOMAS CORREA Page 54210 at 1438 All edits/amendments must be made on the electronic document DICTATION DATE: 12/07/181437 PROCESS SAFETY ENGINEER: ROSA ELENA 12/07/181437 RPT#: [id number] DC DATE: STATUS: ADM IN [facility] [address] [place] [address] END OF REPORT
--- NOTE | 2018-12-07 18:45 | NUR ---
I have reviewed this patient and I concur with the Shift Assessment completed by the Licensed Practical Nurse today this shift.
[2018-12-07 19:44] VITALS: BP 110/68
[2018-12-07 23:41] VITALS: BP 121/74
--- NOTE | 2018-12-08 01:00 | NUR ---
PT REPORTS NEED TO VOID, PURE WIC APPLIED. PT REPORTS DISCOMFORT USING PUREWIC, FRACTURE HOYOS USED. VERY LITTLE URINE PUT OUT.
--- NOTE | 2018-12-08 01:19 | NUR ---
I have reviewed this patient and I concur with the Shift Assessment completed by the Licensed Practical Nurse today this shift.
--- NOTE | 2018-12-08 02:30 | NUR ---
PT REPORTS HE'S UPSET HE ISN'T GOING HOME DUE TO FALL. PT GRABBED MY HAND AND STATED HE'S LONELY HERE. INFORMED PT FAMILY COULD STAY IF DESIRED, BUT HE SAID HIS STAYS HOME TO CARE FOR ANIMALS. STAYED IN PTs ROOM AND CHATTED WITH HIM FOR A WHILE. PT REPORTS PAIN OF 10/10. DENIES FURTHER NEEDS, WILL MONITOR CLOSELY.
[2018-12-08 04:00] VITALS: BP 98/57
[2018-12-08 05:25] VITALS: BP 93/57
--- NOTE | 2018-12-08 05:45 | NUR ---
PT REPORTS URGE TO VOID, VERY LITTLE PUT OUT. BLADDER SCAN READS 758ML.
--- NOTE | 2018-12-08 06:50 | NUR ---
IN&OUT CATH PERFORMED, 1000MLS DRAINED FROM BLADDER. PT TOLERATED WELL, REPORTS RELIEF. INFORMED HE NEEDS TO BE ABLE TO GO WITHIN NEXT 6-8 HRS. WILL PASS IN REPORT.
--- NOTE | 2018-12-08 07:21 | NUR ---
PT IS RESTING IN BED WITH EYES CLOSED. RESPIRATIONS ARE EVEN AND UNLABORED. PT IS EASILY AROUSED WITH VERBAL STIMULATION. PT IS AAO X 4 UPON AROUSAL. DRESSING TO RIGHT HIP WITH MODERATE RED DRAINAGE NOTED. DRESSING TO RIGHT KNEE IS CDI. PT REPORTS FEELING TO RLE AND IS ABLE TO WIGGLE TOES. BILATERAL PEDAL PULSES PALP. PT DENIES PRESENCE OF N/V/DYSPNEA/SOB AT THIS TIME. BED ALARM IS ON AND WORKING. BED IS IN THE LOWEST POSITION. CALL LIGHT AND BEDSIDE TABLE ARE WITHIN REACH. SIDE RAILS X 2. PT DENIES FURTHER NEEDS. WILL CONT TO MONITOR.
[2018-12-08 08:40] VITALS: BP 147/76
[2018-12-08 08:47] LABS: BASOPHILS 0.3 % (0-2); HEMATOCRIT 24.4 % (42.0-54.0); HEMOGLOBIN 7.8 g/dL (13.5-17.5); IMMATURE GRANULOCYTES 0.2 % (0-5); LYMPHOCYTES 13.3 % (15-50); MCH 30.8 pg (26.0-34.0); MCV 96.4 fL (80.0-100.0); MEAN PLATELET VOLUME 9.4 fL (7.4-10.4); MONOCYTES 9.7 % (2-11); NEUTROPHILS 71.5 % (40-80); RBC 2.53 10x6/uL (4.20-6.10); RDW 13.4 % (11.5-14.5)
[2018-12-08 08:57] LABS: PLATELET COUNT 172 10x3/uL (130-400)
[2018-12-08 09:00] LABS: CALC OSMOLALITY 270 mosm/kg (275-300); CARBON DIOXIDE 28.8 mmol/L (21.0-32.0); CHLORIDE - SERUM 102 mmol/L (98-107); CREATININE - SERUM 0.8 mg/dL (0.6-1.3); GLUCOSE 129 mg/dL (74-106); POTASSIUM - SERUM 3.7 mmol/L (3.5-5.1); SODIUM 135 mmol/L (136-145); UREA NITROGEN 10 mg/dL (7-18); eGFR NON AFRICAN AMERICAN > 90 mL/min (90-120)
--- NOTE | 2018-12-08 09:01 | NUR ---
DRESSING TO RIGHT HIP CHANGED PER ORDER. PT TOLERATED WELL. FAMIYL IS AT BEDSIDE. BED IS IN THE LOWEST POSITION. CALL LIGHT AND BEDSIDE TABLE ARE WITHIN REACH. SIDE RAILS X 2. BED ALARM IS ON AND WORKING. PT AND PT FAMILY DENY FURTHER NEEDS.
--- NOTE | 2018-12-08 11:51 | NUR ---
ACEWRAP APPLIED TO RIGHT KNEE PER DR ORDER.
[2018-12-08 15:04] VITALS: BP 117/49
--- NOTE | 2018-12-08 15:33 | NUR ---
PT REPORTS LARGE VOID AND SMALL BM AFTER AMBULATION WITH PT.
[2018-12-08 16:38] VITALS: BP 123/57
--- NOTE | 2018-12-08 17:32 | NUR ---
BLADDER SCAN SHOWS 716ML FLUID. PRINTED TICKET AND PLACED IN PT CHART. WILL NOTIFY BLOCKER HAND PHYSICIAN FOR FURTHER ORDERS.
--- NOTE | 2018-12-08 17:38 | NUR ---
DR MELISSA PAGED TO NOTIFY OF PT BLADDER STATUS. WILL WAIT FOR RETURN CALL AND FURTHER ORDERS.
--- NOTE | 2018-12-08 17:42 | NUR ---
DR MELISSA RETURNED PAGE AND FURTHER ORDERS RECD TO INSERT DUGAN CATHETER.
--- NOTE | 2018-12-08 18:02 | NUR ---
16FR DUGAN CATHETER PLACED USING STERILE TECHNIQUE. 10ML NS USED TO INFLATE BALLOON IN BLADDER. PT TOLERATED PROCEDURE WELL. URINE CONTINUE TO DRAIN AT THIS TIME. PT REPORTS RELIEF WITH CATHETER INSERTION. BED IS IN THE LOWEST POSITION. CALL LIGHT AND BEDSIDE TABLE ARE WITHINR EACH. SIDE RAILS X 2. SPT DENIES FURTHER NEEDS. WILL CONT TO MONITOR.
[2018-12-08 19:00] VITALS: BP 116/52
--- NOTE | 2018-12-08 19:50 | NUR ---
LYING IN BED. ALERT AND ORIENTED X4. TALKATIVE WITH STAFF. BED ALARM ON FOR PT SAFETY. STATES HE FEELS BETTER SINCE DUGAN CATH WAS INSERTED. DUGAN CATH PATENT AND DRAINING CLEAR YELLOW URINE. KWAN WRAP NOTED TO RT KNEE IS C/D/I. DRSGS TO RT HIP ARE C/D/I. PEDAL PULSES WEAK BILAT. ENCOURAGED USE OF I.S. TEMP IS SLIGHTLY ELEVATED. OBSERVED PT USING I.S. RATES PAIN IN RT HIP 5. SCD NOTED TO LLE. ARABELLA NOTED TO RLE. PLEXI BOOT NOTED TO RT FOOT. TELEMETRY SHOWS SR WITH RATE OF 92. SALINE LOCK NOTED TO LT HAND AND RT AC. RESP EVEN AND NONLABORED. BBS CTA BUT DIMINISHED IN LLL. SR ELEVATED X2. CL IN REACH.
--- NOTE | 2018-12-08 20:55 | NUR ---
MEDICATED WITH OXY IR AND TYLENOL FOR C/O PAIN IN RT HIP AND ELEVATED TEMP. CL IN REACH.
--- NOTE | 2018-12-08 23:36 | NUR ---
RESTING QUIETLY WITH EYES CLOSED. RESP EVEN AND NONLABORED. NO DISTRESS. CL IN REACH. BED ALARM ON
[2018-12-09] VITALS: BP 117/53
[2018-12-09 04:00] VITALS: BP 121/62
[2018-12-09 05:36] LABS: BASOPHILS 0.3 % (0-2); HEMATOCRIT 21.4 % (42.0-54.0); IMMATURE GRANULOCYTES 0.2 % (0-5); LYMPHOCYTES 15.4 % (15-50); MCH 30.8 pg (26.0-34.0); MCHC 32.2 g/dL (31.0-37.0); MCV 95.5 fL (80.0-100.0); MEAN PLATELET VOLUME 9.1 fL (7.4-10.4); NEUTROPHILS 66.1 % (40-80); PLATELET COUNT 166 10x3/uL (130-400); RBC 2.24 10x6/uL (4.20-6.10); RDW 13.2 % (11.5-14.5); WBC 5.7 10x3/uL (4.8-10.8)
[2018-12-09 05:56] LABS: CALC OSMOLALITY 266 mosm/kg (275-300); CHLORIDE - SERUM 100 mmol/L (98-107); CREATININE - SERUM 0.7 mg/dL (0.6-1.3); GLUCOSE 131 mg/dL (74-106); POTASSIUM - SERUM 3.7 mmol/L (3.5-5.1); SODIUM 133 mmol/L (136-145); UREA NITROGEN 11 mg/dL (7-18); eGFR NON AFRICAN AMERICAN > 90 mL/min (90-120)
[2018-12-09 06:02] LABS: HEMOGLOBIN 6.9 g/dL (13.5-17.5)
[2018-12-09 07:00] VITALS: BP 114/50
--- NOTE | 2018-12-09 07:17 | OP ---
PATIENT NAME: THOMAS RAINEY MEDICAL RECORD: [id number] :46 LOCATION:D.MS [id number] ADMISSION DATE:12/04/18 SURGEON: YUMIKO SINGLETARY DO DATE OF OPERATION: 12/07/2018 PROCEDURE PERFORMED: Right hip intramedullary nailing. PREOPERATIVE DIAGNOSIS: Right hip intertrochanteric fracture. POSTOPERATIVE DIAGNOSIS: Right hip intertrochanteric fracture. INDICATIONS: Mr. 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 X-rays were taken. A hip fracture was seen intertrochanteric, it extended down to the subtrochanteric region, it was minimally nondisplaced. I informed him that we would probably displace it. We did put weight on it and we needed to fix it and do a hip nail. He was aware of the risks including infection, bleeding, damage to nerves and vessels further fracture, continued pain, need for further surgery, blood clots, and even . He signed the consent SURGEON: Yumiko Singletary DO DESCRIPTION OF PROCEDURE: The patient was taken to the operative suite, laid in supine position, given general anesthetic. LMA was placed. The right lower extremity was then hooked to Mary D table. Right lower extremity was prepped and draped in sterile fashion, given 2 grams Ancef preoperatively. Once he was positioned and prepped and draped, a timeout was performed and everybody was in agreement correct side, site, patient and procedure. Incision then began over the greater trochanter and the pin was inserted into the proximal femur. After good starting point in AP and lateral, the opening reamer was then used and a long guidepin was placed and measured to be a 340 mm nail. The reaming then began and started with 9 and went to 11 and got good chatter with a 10 and 11. Decided to put a #9 nail was then inserted and the compression screw was put in through the guide. A pin was placed confirming good position on AP and lateral, 10.5 mm screw was put in and then antirotational screw 75 mm and then, with this we got perfect circles and in the most proximal hole, we got a 40 mm in length screw. It was all in good position on AP and lateral and these sites were irrigated and closed. The IT band was closed in its proximal incision with #1 Vicryl in [id number] fashion and the skin with 2-0 Vicryl in inverted interrupted fashion and 4-0 Monocryl ran on the skin and Prineo glue on the skin and then covered with Telfa and Tegaderm. He was awakened and taken to recovery in stable condition. Blood loss approximately 150 mL. TRANSINT:[id number] Voice Confirmation ID: [id number] DOCUMENT ID: [id number] OPERATIVE REPORT [id number] THOMAS RAINEY MICHAEL D, at 0717 CC: [id number] DICTATION DATE: 12/07/181827 SAUSAGE INSPECTOR: 12/08/18 0140 ADM IN [facility] [address] [place] [address]
--- NOTE | 2018-12-09 07:26 | NUR ---
PT IS RESTING IN BED WITH EYES OPEN. RESPIRATIONS ARE EVEN AND UNLABORED. PT IS AAO X 4. DRESSING TO RIGHT KNEE IS CDI. DRESSING TO RIGHT HIP WITH MODERATE AMOUNT OF RED DRAINAGE. WILL CHANGE DRESSING. PT REPORTS FEELING TO RLE. PT REPORTS SLIGHT PAIN. WILL ADDRESS. SEE EMAR. BED IS IN THE LOWEST POSITION. CALL LIGHT AND BEDSIDE TABLE ARE WITIHN REACH. SIDE RAILS X 2. BED ALARM IS ON AND WORKING. ALL OTHER FALL PRECAUTIONS ARE IN PLACE. PT DENIES FURTHER NEEDS. WILL CONT TO MONITOR.
--- NOTE | 2018-12-09 10:44 | NUR ---
UNIT (1) OF PRBC TRANSFUSION INITIATED. VSS. SEE TRANSFUSION CARD FOR VITALS. PT WITHOUT APPARENT S/S OF DISTRESS. FAMILY AT BEDSIDE. PRBC INFUSING WITHOUT DIFFICULTY. WILL STAY IN ROOM TO MONITOR CLOSELY FOR FIRST 15 MINUTES OF TRANSFUSION.
--- NOTE | 2018-12-09 11:00 | NUR ---
VSS. NO APPARENT S/S DISTRESS. PT DENIES PRESENCE OF N/V/DYSPNEA/DIZZINESS AT THIS TIME. BED ALARM IS ON AND WORKING. BED IS IN THE LOWEST POSITION. CALL LIGHT AND BEDSIDE TABLE ARE WITHIN REACH. SIDE RAILS X 2. PT DENIES FURTHER NEEDS. PRBC INFUSING WITHOUT DIFFICULTY. WILL CONT TO MONITOR.
[2018-12-09 11:56] VITALS: BP 96/67
--- NOTE | 2018-12-09 14:00 | NUR ---
UNIT (1) OF PRBC TRANSFUSION COMPLETE. VSS. SEE TRANSFUSION CARD FOR VITALS. PT IS AAO X 4.
--- NOTE | 2018-12-09 14:23 | NUR ---
UNIT (2) OF PRBC TRANSFUSION INITIATED. VSS. SEE TRANSFUSION CARD FOR VITALS. PT IS AAO X 4. NO APPARENT S/S OF DISTRESS AT THIS TIME. FAMILY AT BEDSIDE. PT DENIES PRESENCE OF N/V AT THIS TIME. WILL STAY IN ROOM FOR 15 MINUTES TO MONITOR CLOSELY.
--- NOTE | 2018-12-09 14:40 | NUR ---
VSS. PT DENIES PRESENCE OF N/V/DYSPNEA/DIZZINESS AT THIS TIME. NO APPARENT S/S OF DISTRESS. PRBC INFUSING WITHOUT DIFFICULTY. PT DENIES FURTHER NEEDS. BED ALARM IS ON AND WORKING. BED IS IN THE LOWEST POSITION. CALL LIGHT AND BEDSIDE TABLE ARE WITHIN REACH. SIDE RAILS X 2. WILL CONT TO MONITOR.
--- NOTE | 2018-12-09 17:15 | NUR ---
UNIT (2) OF PRBC TRANSFUSION COMPLETE. VSS. SEE TRANSFUSION CARD. NO APPARENT S/S OF DISTRESS. PT DENIES PRESENCE OF N/V/DYSPNEA/DIZZINESS AT THIS TIME. PT IS AAO X4. DINNER TRAY AT BEDSIDE. PT ASSISTED WITH REPOSITIONING AND DINNER TRAY IN REACH. PT DENIES FURTHER NEEDS. BED IS IN THE LOWEST POSITION. CALL LIGHT AND BEDSIDE TABLE ARE WITHIN REACH. SIDE RAILS X 2. APT IS ON AND WORKING. WILL CONT TO MONITOR.
--- NOTE | 2018-12-09 19:30 | NUR ---
LYING IN BED. ALERT AND ORIENTED X4. RATES PAIN IN RT HIP 5. DRSG X2 NOTED TO RT HIP WITH OLD DRAINAGE NOTED. DRSG WITH KWAN WRAP NOTED TO RT KNEE. DUGAN CATH PATENT AND DRAINING CLEAR YELLOW URINE. TELEMETRY SHOWS PACED. PEDAL PULSES GOOD. ARABELLA FLORES NOTED BILAT. PLEXI NOTED TO RLE. SCD NOTED TO LLE. NO EDEMA NOTED. ENCOURAGED USE OF I.S. PT USED I.S. AT THIS TIME. SALINE LOCK NOTED TO RT AC. BED ALARM ON FOR PT SAFETY. SR ELEVATED X2. CL IN REACH.
[2018-12-09 20:00] VITALS: BP 129/72
--- NOTE | 2018-12-09 20:15 | NUR ---
MEDICATED WITH OXY IR 10MG PER REQUEST FOR C/O PAIN IN RT HIP RATING 5. CL IN REACH. BED ALARM IN USE.
[2018-12-09 23:56] VITALS: BP 114/45
--- NOTE | 2018-12-10 01:18 | NUR ---
RESTING QUIETLY WITH EYES CLOSED. RESP EVEN AND NONLABORED. NO DISTRESS. CL IN REACH.
[2018-12-10 04:00] VITALS: BP 120/68
--- NOTE | 2018-12-10 05:22 | NUR ---
MEDICATED WITH OXY IR 5MG FOR C/O PAIN IN RT HIP. CL IN REACH. TALKATIVE WITH STAFF. NO DISTRESS.
[2018-12-10 05:48] LABS: BASOPHILS 0.3 % (0-2); EOSINOPHILS 8.9 % (0-7); IMMATURE GRANULOCYTES 0.7 % (0-5); LYMPHOCYTES 20.3 % (15-50); MCH 30.2 pg (26.0-34.0); MCHC 33.2 g/dL (31.0-37.0); MEAN PLATELET VOLUME 9.6 fL (7.4-10.4); MONOCYTES 10.7 % (2-11); NEUTROPHILS 59.1 % (40-80); PLATELET COUNT 182 10x3/uL (130-400); RDW 15.3 % (11.5-14.5); WBC 6.9 10x3/uL (4.8-10.8)
[2018-12-10 05:50] LABS: HEMATOCRIT 28.9 % (42.0-54.0); HEMOGLOBIN 9.6 g/dL (13.5-17.5); MCV 90.9 fL (80.0-100.0); RBC 3.18 10x6/uL (4.20-6.10)
[2018-12-10 06:13] LABS: CALC OSMOLALITY 275 mosm/kg (275-300); CALCIUM 8.2 mg/dL (8.5-10.1); CARBON DIOXIDE 27.3 mmol/L (21.0-32.0); CHLORIDE - SERUM 101 mmol/L (98-107); CREATININE - SERUM 0.7 mg/dL (0.6-1.3); GLUCOSE 108 mg/dL (74-106); POTASSIUM - SERUM 3.9 mmol/L (3.5-5.1); SODIUM 137 mmol/L (136-145); eGFR NON AFRICAN AMERICAN > 90 mL/min (90-120)
[2018-12-10 06:15] LABS: UREA NITROGEN 15 mg/dL (7-18)
--- NOTE | 2018-12-10 07:50 | NUR ---
PT RESTING IN BED. RESP EVEN AND UNLABORED. O2 @ 2L NC IN PLACE. PT REPORTS PAIN 5/10 AT THIS TIME. DISCUSSED NEXT TIME PAIN MEDICATIONS DUE PER MD ORDERS. PT VOICES UNDERSTANDING. IV TO RIGHT AC WITH 1/2 NS @ 50ML/HR INFUSING VIA PUMP. SITE WITHOUT REDNESS OR EDEMA. DRESSING TO RIGHT HIP C/D/I, KWAN WRAP TO RIGHT KNEE. F/C PATENT TO GRAVITY DRAINING CLEAR YELLOW URINE. PT DENIES FURTHER NEEDS AT THIS TIME. CL WITHIN REACH. ENCOURAGED TO CALL WITH NEEDS. CONTINUE POC
[2018-12-10 08:36] VITALS: BP 121/65
--- NOTE | 2018-12-10 11:55 | NUR ---
PT F/C DISCONTINUED PER MD ORDERS. 10ML SALINE REMOVED FROM BULB, BULB INTACT. PT JORDYN WELL.
[2018-12-10 12:48] VITALS: BP 113/53
--- NOTE | 2018-12-10 12:50 | NUR ---
OT NOTE: PT PERFORMED VERY WELL TODAY. STATED THAT HE WANTED TO DO ALL THAT HE COULD IN ORDER TO GET BACK HOME. SIT TO STAND WITH MIN ASSIST AND USE OF WALKER; AMB APPROX 70 FT WITH WALKER TO IMPROVE STRENGTH AND FUNCTIONAL ENDURANCE. MIN ASSIST WITH BASIC ADLS INCLUDING UPPER BODY BATHING, COMING HAIR, ETC. HELPED WITH REMAINDER OF BATHING. KEYUR ESPINO, OTR/L
--- NOTE | 2018-12-10 16:16 | NUR ---
Rehab Note- Acute Inpatient Rehab prescreen order received. The patient has [facility] insurance and will require a PreAuth prior to an acute inpatient rehab stay. Will begin the PreAuth process. Will follow at this time. Thank you for this referral! Janeth Daniel RN Clinical Liaison, [facility] Rehab
[2018-12-10 16:30] VITALS: BP 114/59
[2018-12-10 20:00] VITALS: BP 103/59
--- NOTE | 2018-12-10 20:31 | NUR ---
OT NOTE: PT COMPLETED EOB SITTING WITH SBA. PT COMPLETED BED MOB TASKS WITH CGA/MIN A. PT COMPLETED HYGIENE TASKS WITH MIN/MOD A. PT EXHIBITED INCREASED FUNCTIONAL PERFORMANCE. THANK YOU, NICKY REN
--- NOTE | 2018-12-11 00:44 | NUR ---
A/O WITH NO SIGNS OF ACUTE DISTRESS. IV TO THE RT AC WITH NO REDNESS OR SWELLING. DRESSING TO THE RT HIP AND KNEE, CDI WITH PULSE NOTED. PAT ALARM ON. DENIES PAIN OR OTHER NEEDS AT THIS TIME. CONTINUE PLAN OF CARE.
[2018-12-11 04:00] VITALS: BP 110/71
[2018-12-11 06:02] LABS: BASOPHILS 0.3 % (0-2); EOSINOPHILS 8.8 % (0-7); HEMATOCRIT 30.7 % (42.0-54.0); HEMOGLOBIN 10.2 g/dL (13.5-17.5); IMMATURE GRANULOCYTES 0.3 % (0-5); MCH 30.6 pg (26.0-34.0); MCHC 33.2 g/dL (31.0-37.0); MCV 92.2 fL (80.0-100.0); MEAN PLATELET VOLUME 9.5 fL (7.4-10.4); MONOCYTES 9.6 % (2-11); RBC 3.33 10x6/uL (4.20-6.10); RDW 14.6 % (11.5-14.5); WBC 6.5 10x3/uL (4.8-10.8)
[2018-12-11 06:08] LABS: PLATELET COUNT 230 10x3/uL (130-400)
[2018-12-11 06:26] LABS: CALC OSMOLALITY 268 mosm/kg (275-300); CALCIUM 8.3 mg/dL (8.5-10.1); CARBON DIOXIDE 27.4 mmol/L (21.0-32.0); CHLORIDE - SERUM 98 mmol/L (98-107); CREATININE - SERUM 0.7 mg/dL (0.6-1.3); GLUCOSE 101 mg/dL (74-106); SODIUM 134 mmol/L (136-145); UREA NITROGEN 14 mg/dL (7-18); eGFR NON AFRICAN AMERICAN > 90 mL/min (90-120)
[2018-12-11 09:59] VITALS: BP 123/73
[2018-12-11 10:02] VITALS: BP 123/73
--- NOTE | 2018-12-11 12:01 | NUR ---
PATIENT STATES HE FEELS JITTERY AND JUST NOT FEELING WELL. FAMILY IN ROOM. WCTM
--- NOTE | 2018-12-11 12:08 | NUR ---
OT NOTE: PT REPORTING INCREASED HIP PAIN TODAY. FAMILY REPORTS THAT PT BEGAN GETTING CLAMMY AND NAUSEATED WHEN GETTING UP EARIER TODAY. PT HAD RECEIVED PAIN MEDS APPROX 20 MIN BEFORE TMT. CONT TO REPORT SEVERE PAIN (11/29)..PERFORMED SIT TO STAND WITH MIN ASSIST AND EXT TIME WITH USE OF WALKER; ONLY ABLE TO AMBU APPROX 15-20 FT. PT STATED THAT HE " DID NOT FEEL RIGHT".. STATED THAT THE PAIN WAS INTOLERABLE AND COULD NOT DO ANY MORE AT THIS TIME. UNSURE WHY PAIN IS WORSE TODAY. KEYUR ESPINO, OTR/L
--- NOTE | 2018-12-11 12:19 | NUR ---
Nutrition follow-up: Diet: Regular PO intake 100% of most meals Pt reports not feeling well today; knee pain increased. Labs reviewed WT: 172# Will continue to provide food choices and honor food preferences. RDN following.
[2018-12-11 12:24] VITALS: BP 130/58
--- NOTE | 2018-12-11 15:27 | NUR ---
IV THERAPY DC'ED WITH TIP INTACT FROM RIGHT AC. PATIENT RESTING. CL IN REACH. WCTM
[2018-12-11 17:19] VITALS: BP 111/64
--- NOTE | 2018-12-11 18:32 | NUR ---
OT NOTE: PT STATED HE IS NOT FEELING WELL. NURSING NOTIFIED. PT STEPDAUGHTER AND WANT TO SPEAK TO SOMEONE REGARDING REHAB. NURSING NOTIFIED. PT COMPLETED BED MOB TASKS WITH MOD A. PT COMPLETED BUE AROM AXS. PT COMPLETED HYGIENE TASK WITH SETUP. THANK YOU, NICKY REN
[2018-12-11 19:00] VITALS: BP 110/55
--- NOTE | 2018-12-11 21:00 | NUR ---
A/O WITH NO SIGNS OF DISTRESS. NO IV NOTED. DRESSING TO THE RT HIP AND KNEE NOTED, CDI WITH PULSE NOTED. DENIES ANY FURTHER NEEDS AT THIS TIME. CONTINUE PLAN OF CARE.
[2018-12-12] VITALS: BP 116/54
[2018-12-12 04:00] VITALS: BP 116/71
[2018-12-12 06:19] LABS: BASOPHILS 0.3 % (0-2); HEMATOCRIT 32.3 % (42.0-54.0); HEMOGLOBIN 10.6 g/dL (13.5-17.5); IMMATURE GRANULOCYTES 0.5 % (0-5); LYMPHOCYTES 20.2 % (15-50); MCH 30.5 pg (26.0-34.0); MCHC 32.8 g/dL (31.0-37.0); MCV 93.1 fL (80.0-100.0); MEAN PLATELET VOLUME 9.9 fL (7.4-10.4); MONOCYTES 9.7 % (2-11); NEUTROPHILS 61.3 % (40-80); PLATELET COUNT 219 10x3/uL (130-400); RBC 3.47 10x6/uL (4.20-6.10); RDW 14.4 % (11.5-14.5); WBC 6.5 10x3/uL (4.8-10.8)
[2018-12-12 06:31] LABS: CALC OSMOLALITY 268 mosm/kg (275-300); CALCIUM 8.4 mg/dL (8.5-10.1); CARBON DIOXIDE 26.2 mmol/L (21.0-32.0); CHLORIDE - SERUM 98 mmol/L (98-107); CREATININE - SERUM 0.8 mg/dL (0.6-1.3); GLUCOSE 100 mg/dL (74-106); POTASSIUM - SERUM 4.4 mmol/L (3.5-5.1); SODIUM 134 mmol/L (136-145); UREA NITROGEN 15 mg/dL (7-18); eGFR NON AFRICAN AMERICAN > 90 mL/min (90-120)
[2018-12-12 08:30] VITALS: BP 119/76
--- NOTE | 2018-12-12 08:45 | NUR ---
PATIENT ON CPM MACHINE. CL IN REACH. NO FURTHER NEEDS AT THIS TIME. WCTM
--- NOTE | 2018-12-12 09:25 | NUR ---
Rehab Note- Received voicemail from Lenore with [facility] with an approval for an acute inpatient rehab stay for 7-14 days, updated clinicals will be needed on day 7. Auth #[id number]. Spoke with WENDY Seo. Will admit the patient today if medically stable and ready for discharge from the acute hospital. Thank you for this referral! Janeth Daniel RN Clinical Liaison, [facility] Rehab
--- NOTE | 2018-12-12 09:56 | MORECARE ---
CASE MANAGEMENT DISCHARGE SUMMARY PATIENT: THOMAS CORREA UNIT: [id number] ADM DATE: 12/04/18 AGE: 67 : 48 SEX: M ROOM/BED: D.2212 AUTHOR: JO,DOC PHYSICIAN: REFERRING PHYSICIAN: YUMIKO SINGLETARY DO DATE OF SERVICE: 12/12/18 Discharge Plan Patient Name: THOMAS CORREA Facility: [facility]:[place] : 1950 Planned Disposition: Detention Facility Anticipated Discharge Date: Discharge Date: Expected LOS: Initial Reviewer: [email or web address] Initial Review Date: 12/04/2018 Generated: 12/12/18 10:56 am Comments DCP- Discharge Planning Updated by [id number]: Naty Soto on 12/12/18 8:[address] [facility], IMM SERVED AND EXPLAINED AGAIN AUTH RECEIVED PER [place] DCP- Discharge Planning Updated by [id number]: Naty Soto on 12/07/18 1:[address] patient is not discharging today, he has a fx hip DCP- Discharge Planning Updated by [email or web address]: Naty Soto on 12/07/18 9:[address] [facility] IS OUT OF NETWORK, REFERRAL SENT TO [facility] DCP- Discharge Planning Updated by [email or web address]: Naty Soto on 12/07/18 8:[address] PATIENT WAS ACCEPTED TO THE [facility], BUT HE IS WALKING MORE THAN 250 FT NOW AND REQUESTING TO GO HOME WITH HOME HEALTH. HE DOES NOT HAVE A PREFERENCE FOR HOME HEALTH. WILL SEE WHO TAKES HIS INSURANCE AND HAS AVAIBILITY DCP- Discharge Planning Updated by [email or web address]: Naty Soto on 12/06/18 10:[address] Patient Name: THOMAS CORREA Admission Status: Elective Accout number: [id number] Admission Date: 12-04-2018 : 1950 Admission Diagnosis: Attending: YUMIKO SINGLETARY Current LOS: 2 Anticipated DC Date: Planned Disposition: Detention Facility Primary Insurance: [facility] MEDICARE SOLUTIONS Discharge Planning Comments: CM met with patient to complete initial dc planning assessment. CM educated patient on the CM role and verbal consent given by patient to complete assessment. Patient lives at home with his spouse where he was independent with his care. At discharge patient plans to discharge to skilled facility [facility] for the [facility] and feels this is a safe discharge. CM discussed availability of home health, rehab services, and medical equipment. Will go to the [facility] once auth is received. Patient has a cane, walker, left chair, elevated toilet seat BSC. IMM served and explained. I called the [facility] and spoke with Marta. Patient denied known discharge needs at this time. CM will continue to follow and will assist as needed with dc plans/needs. Continuous Wave Operator: Naty Soto DCPIA - Discharge Planning Initial Assessment Updated by [email or web address]: Naty Soto on 12/06/18 11:39 am * Is the patient Alert and Oriented? Yes * How many steps to enter\exit or inside your home? * PCP KARRI * Pharmacy [facility] * Preadmission Environment Home with Family * ADLs Independent * Equipment Bedside Commode Cane Elevated [place] Seat Rolling Walker Walker * Other Equipment LIFT CHAIR * List name and contact numbers for known caregivers / representatives who currently or will assist patient after discharge: ARCELIA VASQUEZ [phone] * Verbal permission to speak to the caregivers and representatives has been obtained from the patient. N/A * Community resources currently utilized None * Additional services required to return to the preadmission environment? Yes * Can the patient safely return to the preadmission environment? No * Has this patient been hospitalized within the prior 30 days at any hospital? No Coverage Notice Reviewer: [email or web address] Elenita Soto Notice Issued Date-Time: 12/06/2018 11:30 Notice Type: IM Discharge Notice Notice Delivered To: Patient Relationship to Patient: Chip Frier Name: Delivery Method: HAND - Hand Delivered Ayde Days: Prior Verbal Notification: Recipient Understood Notice: Yes Recipient Signature: Yes Med Rec Note Co-signed by Attending: Coverage Notice Comment: Reviewer: [email or web address] Elenita Soto Notice Issued Date-Time: 12/06/2018 11:30 Notice Type: Patient Choice Letter Notice Delivered To: Patient Relationship to Patient: Chip Frier Name: Delivery Method: HAND - Hand Delivered Ayde Days: Prior Verbal Notification: Recipient Understood Notice: Yes Recipient Signature: Yes Med Rec Note Co-signed by Attending: Coverage Notice Comment: Reviewer: [id number] - Naty Soto Notice Issued Date-Time: 12/12/2018 9:40 Notice Type: IM Discharge Notice Notice Delivered To: Patient Relationship to Patient: Chip Frier Name: Delivery Method: HAND - Hand Delivered Ayde Days: Prior Verbal Notification: Recipient Understood Notice: Yes Recipient Signature: Yes Med Rec Note Co-signed by Attending: Coverage Notice Comment: Last DP export: 12/07/18 1:38 Patient Name: THOMAS CORREA Page [id number] at 0956 All edits/amendments must be made on the electronic document DICTATION DATE: 12/12/18955 ENTEROSTOMAL THERAPY NURSE: ROSA ELENA 12/12/18955 RPT#: [id number] DC DATE: STATUS: ADM IN [facility] [address] [place] [address] END OF REPORT
--- NOTE | 2018-12-12 12:40 | NUR ---
FAMILY IN ROOM. PATIENT IN CHAIR. STATES PAIN IS A 6 OUT OF 10. CL IN REACH. TM.
[2018-12-12 12:43] VITALS: BP 118/48
--- NOTE | 2018-12-12 16:46 | NUR ---
REPORT CALLED TO [facility] IN REHAB.
--- NOTE | 2018-12-12 17:08 | NUR ---
OT NOTE: PT COMPLETED SITTING BALANCE WITH SPV. PT COMPLETED FACE WASH WITH SET UP. PT COMPLETED BUE AROM EXS. THANK YOU, NICKY REN
--- NOTE | 2018-12-13 09:30 | MORECARE ---
CASE MANAGEMENT DISCHARGE SUMMARY PATIENT: THOMAS CORREA UNIT: [id number] ADM DATE: 12/04/18 AGE: 67 : 48 SEX: M ROOM/BED: D.2212 AUTHOR: JO,DOC PHYSICIAN: REFERRING PHYSICIAN: YUMIKO SINGLETARY DO DATE OF SERVICE: 12/13/18 Discharge Plan Patient Name: THOMAS CORREA Facility: [facility]:[place] : 1950 Planned Disposition: Shelter Facility Anticipated Discharge Date: Discharge Date: 12/12/2018 Expected LOS: 0 Initial Reviewer: [email or web address] Initial Review Date: 12/04/2018 Generated: 12/13/18 10:30 am DCP- Discharge Planning Updated by [email or web address]: Naty Soto on 12/12/18 8:[address] [facility], IMM SERVED AND EXPLAINED AGAIN AUTH RECEIVED PER CORETTA DCP- Discharge Planning Updated by [email or web address]: Naty Soto on 12/07/18 1:[address] patient is not discharging today, he has a fx hip DCP- Discharge Planning Updated by [id number]: Naty Soto on 12/07/18 9:[address] [facility] IS OUT OF NETWORK, REFERRAL SENT TO [facility] DCP- Discharge Planning Updated by [id number]: Naty Soto on 12/07/18 8:[address] PATIENT WAS ACCEPTED TO THE [facility], BUT HE IS WALKING MORE THAN 250 FT NOW AND REQUESTING TO GO HOME WITH HOME HEALTH. HE DOES NOT HAVE A PREFERENCE FOR HOME HEALTH. WILL SEE WHO TAKES HIS INSURANCE AND HAS AVAIBILITY DCP- Discharge Planning Updated by [id number]: Naty Soto on 12/06/18 10:[address] Patient Name: THOMAS CORREA Admission Status: Elective Accout number: [id number] Admission Date: 12-04-2018 : 1950 Admission Diagnosis: Attending: YUMIKO SINGLETARY Current LOS: 2 Anticipated DC Date: Planned Disposition: Shelter Facility Primary Insurance: [facility] MED[employer]UTIONS Discharge Planning Comments: CM met with patient to complete initial dc planning assessment. CM educated patient on the CM role and verbal consent given by patient to complete assessment. Patient lives at home with his spouse where he was independent with his care. At discharge patient plans to discharge to skilled facility [facility] for the [facility] and feels this is a safe discharge. CM discussed availability of home health, rehab services, and medical equipment. Will go to the [facility] once auth is received. Patient has a cane, walker, left chair, elevated toilet seat BSC. IMM served and explained. I called the [facility] and spoke with Marta. Patient denied known discharge needs at this time. CM will continue to follow and will assist as needed with dc plans/needs. City Attorney: Naty Soto DCPIA - Discharge Planning Initial Assessment Updated by [id number]: Naty Soto on 12/06/18 11:39 am * Is the patient Alert and Oriented? Yes * How many steps to enter\exit or inside your home? * PCP KARRI * Pharmacy [facility] * Preadmission Environment Home with Family * ADLs Independent * Equipment Bedside Commode Cane Elevated [place] Seat Rolling Walker Walker * Other Equipment LIFT CHAIR * List name and contact numbers for known caregivers / representatives who currently or will assist patient after discharge: ARCELIA CHRISTINA [phone] * Verbal permission to speak to the caregivers and representatives has been obtained from the patient. N/A * Community resources currently utilized None * Additional services required to return to the preadmission environment? Yes * Can the patient safely return to the preadmission environment? No * Has this patient been hospitalized within the prior 30 days at any hospital? No Coverage Notice Reviewer: [id number] Elenita Soto Notice Issued Date-Time: 12/06/2018 11:30 Notice Type: IM Discharge Notice Notice Delivered To: Patient Relationship to Patient: Plant Facilities Technician Name: Delivery Method: HAND - Hand Delivered Ayde Days: Prior Verbal Notification: Recipient Understood Notice: Yes Recipient Signature: Yes Med Rec Note Co-signed by Attending: Coverage Notice Comment: Reviewer: [email or web address] Elenita Soto Notice Issued Date-Time: 12/06/2018 11:30 Notice Type: Patient Choice Letter Notice Delivered To: Patient Relationship to Patient: Plant Facilities Technician Name: Delivery Method: HAND - Hand Delivered Ayde Days: Prior Verbal Notification: Recipient Understood Notice: Yes Recipient Signature: Yes Med Rec Note Co-signed by Attending: Coverage Notice Comment: Reviewer: [id number] - Naty Soto Notice Issued Date-Time: 12/12/2018 9:40 Notice Type: IM Discharge Notice Notice Delivered To: Patient Relationship to Patient: Plant Facilities Technician Name: Delivery Method: HAND - Hand Delivered Ayde Days: Prior Verbal Notification: Recipient Understood Notice: Yes Recipient Signature: Yes Med Rec Note Co-signed by Attending: Coverage Notice Comment: Last DP export: 12/12/18 8:56 Patient Name: THOMAS CORREA Page [id number] at 0930 All edits/amendments must be made on the electronic document DICTATION DATE: 12/13/18929 SHAREPOINT ENGINEER: ROSA ELENA 12/13/18929 RPT#: [id number] DC DATE:12/12/18 STATUS: DIS IN [facility] [address] [place] [address] END OF REPORT
--- NOTE | 2019-01-15 07:00 | OP ---
PATIENT NAME: THOMAS RAINEY MEDICAL RECORD: [id number] :46 LOCATION:[facility] ADMISSION DATE:12/04/18 SURGEON: TANVIR SINGLETARY DO DATE OF OPERATION: 12/04/2018 PROCEDURE PERFORMED: Right total knee arthroplasty. PREOPERATIVE DIAGNOSIS: Right knee osteoarthritis. POSTOPERATIVE DIAGNOSIS: Right knee osteoarthritis. INDICATIONS: Mr. Rainey is a 67-year-old male who has had several series of injections in his knees. He has not been cleared for surgery for quite some time, but he did finally get clearance and has been dealing with right knee pain. He has tried bracing, physical therapy and all manner of nonoperative treatment to no avail. It started affecting his activities of daily living and wanted something done surgically. He was consented for a right total knee, which included risk of infection, bleeding, damage to nerves and vessels, need for further surgery, fracture, failure of implant, implant loosening, continued pain, loss of motion of the knee, blood clots, and even . He signed the consent. SURGEON: Tanvir Singletary DO DESCRIPTION OF PROCEDURE: The patient received adductor canal block by anesthesia in the preoperative area. He was taken to the operative suite, laid in the supine position, given gentamicin and Ancef and sedated and LMA was placed. The right lower extremity was then prepped and draped in sterile fashion. A timeout was performed and everyone was in agreement with the correct side, site, patient, and procedure. The incision was then marked out over the anterior knee and covered in Ioban. Incision was then made with a 10 blade scalpel down to the knee capsule and a medial parapatellar approach was then made. With the knee parapatellar approach, the patella was then everted. The part of the fat pad was removed and the patella was milled down to fit a 31 implant. The knee was then flexed up and the femoral canal was entered. The distal femur was then cut off the guide and then the proximal tibia was exposed and the proximal tibia was cut as well. The excess bone was removed. Knee was brought to extension and menisci were removed. Any bleeding was coagulated with Aquamantys throughout the procedure. A 10 extension block then fit in the gap. The femur was then flexed up and sized to be a 62.5. A 62.5, 4-in-1 cutting block was then put on. Solitario wing was used to ensure there was no notching and there was not and the femur was cut. Once the femur was cut, the trial was put on and the tibia was floated and arranged. Rotation was then marked and the lug holes were drilled in the femur and the patella for the implant. Holes were drilled through the guide. The tibia was then exposed and sized to be a 71. A 71 was then drilled and punched. Extra holes then put in the tibia as well for the cement mantle preparation. The knee was then irrigated and cement was put on the implant as well as in the tibia and impacted into place. Excess cement was removed. The femur was then impacted on. A poly was put in between them and brought to extension. The patella was irrigated and then cement was placed in the holes and on the patella implant it was squeezed on. Excess cement was removed. The knee was then irrigated with a liter of Bactisure and 3 liters of normal saline. The cement had dried by that time and sized the poly with a medial release to balance the knee and the knee balanced with a 16 poly in. With a 16 E-poly anterior stabilized bearing and this fit very well and was very OPERATIVE REPORT [id number] THOMAS RAINEY stable in extension and flexion. The Shannan was then placed in the knee and tobramycin and vancomycin powder placed in the knee. The capsule was then closed with #2 Ethibond in a wclzfj-nl-ycroa fashion. The skin was then closed with 2-0 Vicryl inverted interrupted fashion and a ZipLine placed on the knee. Adaptic, 4 x 4s, ABD, Webril, Todd wrap and ARABELLA stocking placed up to the knee, all by REBECCA Kidd. He was then awakened and taken to recovery in stable condition. BLOOD LOSS: Approximately 200 mL. COMPLICATIONS: None. TRANSINT:[id number] Voice Confirmation ID: [id number] DOCUMENT ID: [id number] 01/14/2019 Edited for any Plasencia. TANVIR SINGLETARY DO at 0700 CC: [id number] DICTATION DATE: 12/04/18912 CREDIT OFFICE MANAGER: 12/04/18 1054 DIS IN 12/12/18 [facility] [address] [facility] [place] [address]
== END 2018-12-12 18:09 | DRG 470 ==
LOC: D.SDCHOLD 12-04 05:00 → D.MS 12-04 05:00 → D.SDCHOLD 12-04 07:00 → D.MS 12-04 10:19
PROVIDERS: ADMIT Orthopaedic Surgery; ATTEND Orthopaedic Surgery
PROC: 0SRC0J9 Replacement of Right Knee Joint with Synthetic Substitute, Cemented, Open Approach (ICD-10-PCS; principal; 2018-12-04 07:00)
PROC: 0QH604Z Insertion of Internal Fixation Device into Right Upper Femur, Open Approach (ICD-10-PCS; 2018-12-07)
DX: M17.11 Unilateral primary osteoarthritis, right knee (principal); S72.141A Displaced intertrochanteric fracture of right femur, initial encounter for closed fracture; I25.10 Atherosclerotic heart disease of native coronary artery without angina pectoris; E03.9 Hypothyroidism, unspecified; K21.9 Gastro-esophageal reflux disease without esophagitis; Z95.2 Presence of prosthetic heart valve; W01.0XXA Fall on same level from slipping, tripping and stumbling without subsequent striking against object, initial encounter

== ENCOUNTER 2018-12-12 18:19 | Inpatient (IN) | payer MEDICARE, MEDICAID ==
[~2018-12-12] VITALS: Ht 167.6 cm; Wt 79.4 kg
--- NOTE | 2018-12-12 17:55 | NUR ---
RECIEVED TO ROOM 1115.CL IN REACH.ORIENTED TO ROOM AND SURROUNDINGS.
[~2018-12-12 18:19] MED LIST changes: +ACETAMINOPHEN325 MG PO; +CENTRUM MEN'S1 EACH PO; +DESMOPRESSIN A0.2 MG PO; +ELIQUIS2.5 MG PO; +KEFLEX500 MG PO; +KRILL OIL 1,001 EAC1 PO; +METOPROLOL TART25 MG PO; +MIRALAX17 GM PO; +NAPROXEN250 MG PO; +OXYCODONE HCL5 M1 PO; +PROTONIX40 MG PO; +ULTRAM50 MG PO; +VISTARIL50 MG PO
--- NOTE | 2018-12-12 19:30 | NUR ---
GREETED PATIENT AND INTRODUCED MYSELF. ASSISTED PATIENT ONTO BEDPAN. REMOVED PATIENT AND REPOSITIONED FOR COMFORT. CALL LIGHT IN REACH.
[2018-12-12 20:37] VITALS: BP 103/58
[2018-12-12 22:02] VITALS: BP 103/58; BMI 28.3
--- NOTE | 2018-12-12 23:48 | NUR ---
PT. LAYING IN BED WATCHING TV. ADMINISTERED PRN PAIN MEDICATION FOR PAIN IN RIGHT LEG AND RIGHT KNEE. RESPIRATIONS EVEN. NO S/S OF DISTRESS. CALL LIGHT IN REACH.
--- NOTE | 2018-12-13 06:20 | NUR ---
PT. RESTING QUIETLY WITH EYES CLOSED. RESPIRATIONS EVEN. NO S/S OF DISTRESS. CALL LIGHT IN REACH.
[2018-12-13 06:50] LABS: BASOPHILS 0.5 % (0-2); EOSINOPHILS 7.5 % (0-7); HEMATOCRIT 32.8 % (42.0-54.0); HEMOGLOBIN 10.8 g/dL (13.5-17.5); IMMATURE GRANULOCYTES 0.5 % (0-5); LYMPHOCYTES 20.6 % (15-50); MCH 30.7 pg (26.0-34.0); MCHC 32.9 g/dL (31.0-37.0); MCV 93.2 fL (80.0-100.0); MEAN PLATELET VOLUME 9.6 fL (7.4-10.4); MONOCYTES 10.9 % (2-11); RBC 3.52 10x6/uL (4.20-6.10); RDW 14.3 % (11.5-14.5); WBC 6.1 10x3/uL (4.8-10.8)
[2018-12-13 07:00] LABS: PLATELET COUNT 288 10x3/uL (130-400)
[2018-12-13 07:06] LABS: CALC OSMOLALITY 272 mosm/kg (275-300); CALCIUM 8.8 mg/dL (8.5-10.1); CARBON DIOXIDE 27.3 mmol/L (21.0-32.0); CHLORIDE - SERUM 100 mmol/L (98-107); CREATININE - SERUM 0.8 mg/dL (0.6-1.3); GLUCOSE 101 mg/dL (74-106); POTASSIUM - SERUM 4.2 mmol/L (3.5-5.1); SODIUM 136 mmol/L (136-145); UREA NITROGEN 14 mg/dL (7-18); eGFR NON AFRICAN AMERICAN > 90 mL/min (90-120)
--- NOTE | 2018-12-13 08:05 | NUR ---
PT RESTING IN BED WITH EYES OPEN CALL LIGHT IN REACH WILL MONITER
[2018-12-13 08:28] VITALS: BP 119/66
--- NOTE | 2018-12-13 11:23 | NUR ---
PATIENT ADMITTED TO REHAB FROM ACUTE FLOOR. HIS PCP IS DR. ZENG, HE WILL HAVE [facility] AT DISCHARGE . DME AT HOME IS CANE, WALKER, LIFT CHAIR AND BEDSIDE COMMODE. PATIENT HAS AN APPOINTMENT WITH [facility] 12/24/18 @ 9:30. DISCHARGE PLANS ARE FOR PATIENT TO RETURN HOME WITH HIS FAMILY. WILL CONTINUE TO FOLLOW WITH PATIENT
[2018-12-13 13:30] VITALS: Ht 167.6 cm; Wt 79.4 kg
--- NOTE | 2018-12-13 16:13 | NUR ---
PT RESTING IN BED WITH EYES OPEN CALL LIGHT IN REACH WILL MONITER
--- NOTE | 2018-12-13 19:25 | NUR ---
GREETED PATIENT AND INTRODUCED MYSELF HIS NURSE. PATIENT IS LAYING IN BED WATCHING TV. RESPIRATIONS EVEN. NO S/S OF DISTRESS. STATES THAT PAIN IS 3/10 ON RIGHT LEG AND KNEE. DENIES ANY FURTHER NEEDS. CALL LIGHT IN REACH.
[2018-12-13 20:00] VITALS: BP 93/55
--- NOTE | 2018-12-14 00:34 | NUR ---
PT. AWAKE LAYING IN BED IN SUPINE POSITION. PRN PAIN MEDICATION ADMINISTERED FOR PAIN IN RIGHT HIP AND KNEE. PATIENT REPOSITIONED FOR COMFORT WITH PILLOW UNDER RIGHT KNEE. CALL LIGHT IN REACH.
--- NOTE | 2018-12-14 04:30 | NUR ---
PT. [employer] LIGHT AND STATES THAT HE IS NOT FEELING VERY GOOD. VITAL SIGNS TAKEN AND BLOOD SUGAR CHECKED. BLOOD SUGAR - 97, T-98.3, SPO2-95, P-88, BP 146/74.
--- NOTE | 2018-12-14 04:50 | NUR ---
OFFERED PATIENT ORANGE JUICE AND ASSISTED PATIENT ONTO BEDPAN. PATIENT STATES THAT HE IS FEELING MUCH BETTER AT THIS TIME. WCTM. CALL LIGHT IN REACH.
[2018-12-14 08:00] VITALS: BP 149/72
--- NOTE | 2018-12-14 08:15 | NUR ---
PT RESTING IN BED WITH EYES OPEN CALL LIGHT IN REACH WILL MONITER
--- NOTE | 2018-12-14 18:17 | NUR ---
PT RESTING IN BED WITH EYES OPEN CALL LIGHT IN REACH WILL MONITER
--- NOTE | 2018-12-14 19:22 | NUR ---
GREETED PATIENT AND INTRODUCED MYSELF HIS NURSE. PATIENT IS LAYING IN BED WATCHING TV. RESPIRATIONS EVEN. NO S/S OF DISTRESS. CALL LIGHT IN REACH. STATES THAT PAIN IS 2/10 ON RIGHT KNEE AND RIGHT HIP.
[2018-12-14 21:05] VITALS: BP 91/61
--- NOTE | 2018-12-15 00:19 | NUR ---
PT. RESTING QUIETLY WITH EYES CLOSED. RESPIRATIONS EVEN. NO S/S OF DISTRESS. SR UP X 2. BED IN LOWEST POSITION. CALL LIGHT IN REACH.
[2018-12-15 03:12] LABS: BASOPHILS 0.5 % (0-2); EOSINOPHILS 6.8 % (0-7); HEMATOCRIT 31.8 % (42.0-54.0); HEMOGLOBIN 10.3 g/dL (13.5-17.5); IMMATURE GRANULOCYTES 0.5 % (0-5); LYMPHOCYTES 21.1 % (15-50); MCH 30.3 pg (26.0-34.0); MCHC 32.4 g/dL (31.0-37.0); MCV 93.5 fL (80.0-100.0); MEAN PLATELET VOLUME 9.3 fL (7.4-10.4); NEUTROPHILS 63.1 % (40-80); PLATELET COUNT 338 10x3/uL (130-400); RDW 14.1 % (11.5-14.5)
[2018-12-15 03:20] LABS: WBC 7.8 10x3/uL (4.8-10.8)
[2018-12-15 03:24] LABS: CALC OSMOLALITY 267 mosm/kg (275-300); CALCIUM 8.5 mg/dL (8.5-10.1); CARBON DIOXIDE 26.8 mmol/L (21.0-32.0); CHLORIDE - SERUM 99 mmol/L (98-107); CREATININE - SERUM 0.8 mg/dL (0.6-1.3); GLUCOSE 104 mg/dL (74-106); POTASSIUM - SERUM 4.4 mmol/L (3.5-5.1); SODIUM 133 mmol/L (136-145); eGFR NON AFRICAN AMERICAN > 90 mL/min (90-120)
[2018-12-15 03:25] LABS: UREA NITROGEN 19 mg/dL (7-18)
--- NOTE | 2018-12-15 08:05 | NUR ---
ALERT AND ORITENTED. NO C/O PAIN. RESP EVEN AND UNLABORED. CL IN REACH.
[2018-12-15 08:26] VITALS: BP 114/66
--- NOTE | 2018-12-15 12:03 | NUR ---
PARTICIPATED IN THERAPY THIS AM. SITTING IN ROOM IN WC WITH FAMILY AT THIS TIME. CL IN REACH.
--- NOTE | 2018-12-15 15:43 | NUR ---
NO CHANGE IN ASSESSMENT. RESTING AT THIS TIME. CL IN REACH.
--- NOTE | 2018-12-15 16:52 | NUR ---
SHOWER DONE TODAY PER OT.
[2018-12-15 19:20] VITALS: BP 116/54
--- NOTE | 2018-12-15 19:20 | NUR ---
BEDSIDE REPORT COMPLETE. PT LYING IN BED ALERT AND ORIENTED X4. C/O 6/10 RADIATING RIGHT KNEE AND HIP. NO SIGNS OF ACUTE DISTRESS NOTED. VS STABLE. SHIFT ASSESSMENT COMPLETE. CL IN REACH. FALL PRECAUTIONS IN PLACE. WILL CONTINUE TO MONITOR
--- NOTE | 2018-12-16 00:08 | NUR ---
QUIET HOURS. PT LYING IN BED EYES CLOSED RESTING QUIETLY. RR EVEN AND UNLABORED. CL IN REACH
--- NOTE | 2018-12-16 04:15 | NUR ---
PT LYING IN BED EYES CLOSED RESTING QUIETLY. RR EVEN AND UNLABORED. CL IN REACH
--- NOTE | 2018-12-16 07:54 | NUR ---
AMBULATED TO BR USING RW WITH MIN ASSIST. NO C/O PAIN. CL IN REACH.
[2018-12-16 08:02] VITALS: BP 131/70
--- NOTE | 2018-12-16 10:45 | NUR ---
CPM PUT ON AT 8:30 AND TAKING OFF AT THIS TIME. AMBULATES TO BR. FAMILY AT BS.
--- NOTE | 2018-12-16 15:07 | NUR ---
SITTING IN CHAIR. NO C/O PAIN AT THIS TIME. WILL USE CPM WHEN BACK TO BED. NO CHANGE IN ASSESSMENT. CL IN REACH.
--- NOTE | 2018-12-16 15:53 | NUR ---
CPM ON AT THIS TIME. CL IN REACH.
--- NOTE | 2018-12-16 17:23 | NUR ---
TOOK OFF CPM. RESTING WO DISTRESS. CL IN REACH.
[2018-12-16 19:10] VITALS: BP 108/55
--- NOTE | 2018-12-16 19:10 | NUR ---
BEDSIDE REPORT COMPLETE. PT LYING IN BED WATCHING FOOTBALL. ALERT AND ORIENTED X4. DENIES ANY NEEDS OR PAIN. NO SIGNS OF DISTRESS NOTED. VS STABLE. SHIFT ASSESSMENT COMPLETE. CL IN REACH. FALL PRECAUTIONS IN PLACE. WILL CONTINUE TO MONITOR
--- NOTE | 2018-12-17 00:45 | NUR ---
ASSISTED PT TO RESTROOM WITH MIN ASSIST USING WALKER. NO OTHER CONCERNS VOICED. REQUESTED PAIN MEDICATION FOR 5/10 RADIATING ACHING RIGHT HIP PAIN. PT LYING IN BED. CL IN REACH
--- NOTE | 2018-12-17 05:50 | NUR ---
ASSISTED PT TO RESTROOM AND BACK TO BED WITH SBA USING WALKER. DENIES ANY OTHER NEEDS. C/O MILD DISCOMFORT IN RIGHT HIP. CL IN REACH.
[2018-12-17 06:32] LABS: BASOPHILS 0.7 % (0-2); HEMATOCRIT 32.4 % (42.0-54.0); HEMOGLOBIN 10.3 g/dL (13.5-17.5); IMMATURE GRANULOCYTES 0.3 % (0-5); LYMPHOCYTES 24.2 % (15-50); MCH 29.9 pg (26.0-34.0); MCHC 31.8 g/dL (31.0-37.0); MCV 93.9 fL (80.0-100.0); MONOCYTES 8.3 % (2-11); NEUTROPHILS 60.5 % (40-80); PLATELET COUNT 377 10x3/uL (130-400); RBC 3.45 10x6/uL (4.20-6.10); RDW 14.3 % (11.5-14.5); WBC 6.2 10x3/uL (4.8-10.8)
[2018-12-17 06:49] LABS: CALC OSMOLALITY 273 mosm/kg (275-300); CALCIUM 8.7 mg/dL (8.5-10.1); CARBON DIOXIDE 27.9 mmol/L (21.0-32.0); CHLORIDE - SERUM 101 mmol/L (98-107); CREATININE - SERUM 0.8 mg/dL (0.6-1.3); GLUCOSE 103 mg/dL (74-106); POTASSIUM - SERUM 4.4 mmol/L (3.5-5.1); SODIUM 136 mmol/L (136-145); UREA NITROGEN 17 mg/dL (7-18); eGFR NON AFRICAN AMERICAN > 90 mL/min (90-120)
--- NOTE | 2018-12-17 07:55 | NUR ---
ALERT AND ORIETNED. EATING BREAKFAST. NO C/O PAIN. RESP EVEN AND UNLABORED. CL IN REACH.
[2018-12-17 08:14] VITALS: BP 115/61
--- NOTE | 2018-12-17 11:40 | NUR ---
PARTICIPATED IN THERAPY. AMBULATED IN ESPANA WITH PT. NO C/O PAIN AT THIS TIME. FAMILY IN ROOM.
--- NOTE | 2018-12-17 12:40 | NUR ---
SHOWER TODAY PER OT.
--- NOTE | 2018-12-17 13:27 | NUR ---
Nutrition Follow-up: Diet: Regular PO intake: 100% x last 7 meals. Reports good appetite. Significant meds: miralax. Labs reviewed. Noted "reddened area to buttocks" in nursing skin assessment. Wt: 175# (12/13/18). Last BM 12/17/18. Continue current nutrition regimen. RD Following.
--- NOTE | 2018-12-17 14:17 | NUR ---
CLINICAL UPDATES FAXED TO TOM YOUNG AT [facility], FAXED TO , AUTH # [id number] WITH CONFORMATIONS RECIEVED
--- NOTE | 2018-12-17 16:51 | NUR ---
IN BED WITH CPM ON. PAIN MED GIVEN. NO DISTRESS NOTED. CL IN REACH.
--- NOTE | 2018-12-17 19:30 | NUR ---
GREETED PATIENT AND INTRODUCED MYSELF HIS NURSE. PATIENT IS LAYING IN BED WATCHING TV. RESPIRATIONS EVEN. NO S/S OF DISTRESS. STATES THAT PAIN IS 2/10 ON RIGHT KNEE AND RIGHT KNEE. CALL LIGHT IN REACH.
[2018-12-17 21:00] VITALS: BP 105/56
--- NOTE | 2018-12-17 23:51 | NUR ---
PT. RESTING QUIETLY WITH EYES CLOSED. RESPIRATIONS EVEN. NO S/S OF DISTRESS. SR UP X 2. BED IN LOWEST POSITION. CALL LIGHT IN REACH.
--- NOTE | 2018-12-18 08:15 | NUR ---
PT RESTING IN BED WITH EYES OPEN CALL LIGHT IN REACH WILL MONITER
[2018-12-18 08:21] VITALS: BP 126/72
--- NOTE | 2018-12-18 18:10 | NUR ---
PT RESTING IN BED WITH EYES OPEN CALL LIGHT IN REACH NO PROBLEMS WILL MONITER
--- NOTE | 2018-12-18 20:00 | NUR ---
PATIENT RECEIVED SITTING UP IN BED. ASSESSMENT & VITAL SIGNS DONE. BED LOW. CALL LIGHT WITHIN REACH. WILL CONTINUE TO MONITOR.
[2018-12-18 21:05] VITALS: BP 109/50
--- NOTE | 2018-12-19 02:16 | NUR ---
I have reviewed this patient and I concur with the Shift Assessment completed by the Licensed Practical Nurse today this shift.
--- NOTE | 2018-12-19 03:00 | NUR ---
PATIENT EYES CLOSED. RESPIRATIONS 18 & EVEN. BED LOW. CALL LIGHT WITHIN REACH. WILL CONTINUE TO MONITOR.
[2018-12-19 07:04] LABS: BASOPHILS 0.6 % (0-2); EOSINOPHILS 5.5 % (0-7); HEMATOCRIT 31.7 % (42.0-54.0); HEMOGLOBIN 10.1 g/dL (13.5-17.5); IMMATURE GRANULOCYTES 0.4 % (0-5); LYMPHOCYTES 25.1 % (15-50); MCH 29.9 pg (26.0-34.0); MCHC 31.9 g/dL (31.0-37.0); MCV 93.8 fL (80.0-100.0); MEAN PLATELET VOLUME 8.9 fL (7.4-10.4); MONOCYTES 8.9 % (2-11); NEUTROPHILS 59.5 % (40-80); PLATELET COUNT 374 10x3/uL (130-400); RBC 3.38 10x6/uL (4.20-6.10); RDW 14.3 % (11.5-14.5); WBC 5.4 10x3/uL (4.8-10.8)
[2018-12-19 07:20] LABS: CALC OSMOLALITY 277 mosm/kg (275-300); CALCIUM 8.6 mg/dL (8.5-10.1); CARBON DIOXIDE 26.7 mmol/L (21.0-32.0); CHLORIDE - SERUM 102 mmol/L (98-107); CREATININE - SERUM 0.7 mg/dL (0.6-1.3); GLUCOSE 99 mg/dL (74-106); POTASSIUM - SERUM 4.3 mmol/L (3.5-5.1); SODIUM 138 mmol/L (136-145); UREA NITROGEN 17 mg/dL (7-18); eGFR NON AFRICAN AMERICAN > 90 mL/min (90-120)
--- NOTE | 2018-12-19 07:55 | NUR ---
ALERT AND ORIENTED. EATING BREAKFAST. NO DISTRESS NOTED. CL IN REACH.
[2018-12-19 08:16] VITALS: BP 119/64
--- NOTE | 2018-12-19 13:43 | NUR ---
SHOWER GIVEN PER OT. PARTICIPATED IN THERAPY. RESTING IN ROOM AT THIS TIME WITH CL IN REACH. FAMILY AT BS.
[2018-12-19 21:20] VITALS: BP 113/65
--- NOTE | 2018-12-19 21:57 | NUR ---
PATIENT RECEIVED SITTING UP IN BED. ASSESSMENT & VITAL SIGNS DONE. BED LOW. CALL LIGTH WITHIN REACH. WILL CONTINUE TO MONITOR.
--- NOTE | 2018-12-20 04:15 | NUR ---
QUIET HOURS. PT LYING IN BED EYES CLOSED RESTING QUIETLY. RR EVEN AND UNLABORED. CL IN REACH
--- NOTE | 2018-12-20 04:27 | NUR ---
I have reviewed this patient and I concur with the Shift Assessment completed by the Licensed Practical Nurse today this shift.
[2018-12-20 08:00] VITALS: BP 121/56
--- NOTE | 2018-12-20 09:44 | NUR ---
PATIENT LYING IN BED WITH CPM ON RIGHT KNEE. IN ROOM. CALL LIGHT WITHIN REACH. VOICES NO NEEDS. WILL CONTINUE WITH PLAN OF CARE
--- NOTE | 2018-12-20 13:32 | NUR ---
NUTRITION F//U PT TOLERATING REG DIET WITH 75 TO 100% INTAKE RECENT MEALS. +BM 12/19/18. WILL CONTINUE TO PROVIDE DIET, HONOR FOOD PREFERENCES. RD FOLLOWING
--- NOTE | 2018-12-20 15:30 | NUR ---
PATIENT HELPED INTO BATHROOM. MODERATE ASST TO HELP PATIENT OUT OF BED TO WALKER. WALKES TO BATHROOM WITH WHEELED WALKER WITH STAND BY ASST. NEEDS HELP PULLING UP AND DOWN BACK OF PANTS.
--- NOTE | 2018-12-20 15:35 | NUR ---
PATIENT IN REHAB ROOM. WORKING WITH OCCUPATIONAL THERAPIST. DENIES ANY PAIN/DISC AT THIS TIME.
--- NOTE | 2018-12-20 18:00 | NUR ---
I have reviewed this patient and I concur with the Shift Assessment completed by the Licensed Practical Nurse today this shift.
[2018-12-20 19:22] VITALS: BP 95/48
--- NOTE | 2018-12-20 19:44 | NUR ---
GREETED PATIENT AND INTRODUCED MYSELF HIS NURSE. PATIENT IS LAYING IN BED WATCHING TV. RESPIRATIONS EVEN. NO S/S OF DISTRESS. STATES PAIN IS 4/10 IN RIGHT KNEE AND RIGHT HIP. CALL LIGHT IN REACH.
--- NOTE | 2018-12-21 00:52 | NUR ---
PT. RESTING QUIETLY WITH EYES CLOSED. RESPIRAITONS EVEN. NO S/S OF DISTRESS. SR UP X 2. BED IN LOWEST POSITION. CALL LIGHT IN REACH.
[2018-12-21 07:57] VITALS: BP 124/40
--- NOTE | 2018-12-21 08:00 | NUR ---
PATIENT IS ALERT/ORIENT. IN REHAB ROOM. WORKING WITH PHYSICAL THERAPIST. C/O OF RIGHT KNEE AND HIP PAIN. PRN PAIN MEDICATION GIVEN
--- NOTE | 2018-12-21 10:14 | NUR ---
PATIENT SITTING UP IN WHEELCHAIR BY BED. IN ROOM VISITING. CALL LIGHT WITHIN REACH. VOICES NO NEEDS AT THIS TIME.
--- NOTE | 2018-12-21 10:55 | NUR ---
The patient is awake and sitting up in the bed and he is pleasnt. He said he went to the the gym and he is beginning to feel stronger each day. He denies any needs at this time.
--- NOTE | 2018-12-21 14:05 | NUR ---
PATIENT LYING IN BED. OCCUPATIONAL THERAPIST SET UP CPM FOR PATIENT. CPM ON RIGHT LEG
[2018-12-21 19:00] VITALS: BP 109/41
--- NOTE | 2018-12-21 19:13 | NUR ---
GREETED PATIENT AND INTRODUCED MYSELF HIS NURSE. PATIENT IS SITTING IN WHEELCHAIR WATCHING TV. RESPIRATIONS EVEN. NO S/S OF DISTRESS. STATES THAT RIGHT HIP IS 5/10 AT THIS TIME. CALL LIGHT WITHIN REACH.
--- NOTE | 2018-12-22 00:20 | NUR ---
PT. RESTING QUIETLTY WITH EYES CLOSED. RESPIRATIONS EVEN. NO S/S OF DISTRESS. SR UP X 2. BED IN LOWEST POSITION. CALL LIGHT IN REACH.
--- NOTE | 2018-12-22 06:14 | NUR ---
PT. RESTING QUIETLY WITH EYES CLOSED. RESPIRATIONS EVEN. NO S/S OF DISTRESS. CALL LIGHT IN REACH.
[2018-12-22 07:46] VITALS: BP 120/56
--- NOTE | 2018-12-22 08:30 | NUR ---
PT UP IN WHEELCHAIR EATING BREAKFAST VISITORS IN ROOM CALL LIGHT IN REACH WILL MONITER
--- NOTE | 2018-12-22 18:16 | NUR ---
I have reviewed this patient and I concur with the Shift Assessment completed by the Licensed Practical Nurse today this shift.
[2018-12-22 20:23] VITALS: BP 112/64
--- NOTE | 2018-12-22 20:23 | NUR ---
PATIENT RECEIVED SITTING UP IN BED WATCHING TV. PATIENT ASSESSMENT & VITAL SIGNS DONE. NO C/O PAIN OR DISTRESS. BED LOW. ALARM ON. CALL LIGHT & URINAL WITHIN REACH. WILL CONTINUE TO MONITOR.
--- NOTE | 2018-12-22 21:31 | NUR ---
PATIENT GIVEN AMBIEN FOR INSOMNIA.
--- NOTE | 2018-12-22 21:32 | NUR ---
PATIENT TOILETED HAD VOID. RETURNED TO BED USING HIS WALKER. BED LOW. CALL LIGHT WITHIN REACH. WILL CONTINUE TO MONITOR.
--- NOTE | 2018-12-23 00:53 | NUR ---
I have reviewed this patient and I concur with the Shift Assessment completed by the Licensed Practical Nurse today this shift.
--- NOTE | 2018-12-23 01:30 | NUR ---
PATIENT TOILEITED HAD VOID. RETURNED TO BED. BED LOW. ALARM ON. WILL CONTINUE TO [facility].
--- NOTE | 2018-12-23 01:38 | NUR ---
PATIENT NOT GIVEN OXYCODONE IR AT THIS TIME. GIVEN AT 2350 0N 12/22/18.
--- NOTE | 2018-12-23 08:15 | NUR ---
PT UP ON SIDE OF BED EATING BREAKFAST TOLERATING WELL WILL MONITER
--- NOTE | 2018-12-23 10:55 | NUR ---
I have reviewed this patient and I concur with the Shift Assessment completed by the Licensed Practical Nurse today this shift.
--- NOTE | 2018-12-23 15:33 | NUR ---
PT RESTING IN BED WITH EYES OPEN CALL LIGHT IN REACH WILL MONITER
--- NOTE | 2018-12-23 19:38 | NUR ---
PT SITTING UP IN BED. CL IN REACH. RESP EVEN AND UNLABORED. A/O X4. DENIES NEEDS AT THIS TIME. LUNGS CLEAR. BOWEL ACTIVE X4. BED IN LOW SIDE RAILS X2. WILL CONTINUE TO MONITOR.
[2018-12-23 20:37] VITALS: BP 100/60
--- NOTE | 2018-12-24 02:51 | NUR ---
I have reviewed this patient and I concur with the Shift Assessment completed by the Licensed Practical Nurse today this shift.
[2018-12-24 05:36] LABS: BASOPHILS 0.7 % (0-2); EOSINOPHILS 7.5 % (0-7); HEMATOCRIT 34.2 % (42.0-54.0); HEMOGLOBIN 10.8 g/dL (13.5-17.5); LYMPHOCYTES 30.4 % (15-50); MCH 29.8 pg (26.0-34.0); MCHC 31.6 g/dL (31.0-37.0); MCV 94.2 fL (80.0-100.0); MEAN PLATELET VOLUME 8.7 fL (7.4-10.4); MONOCYTES 8.2 % (2-11); NEUTROPHILS 53.2 % (40-80); PLATELET COUNT 345 10x3/uL (130-400); RBC 3.63 10x6/uL (4.20-6.10); RDW 14.3 % (11.5-14.5); WBC 4.3 10x3/uL (4.8-10.8)
[2018-12-24 05:57] LABS: CALC OSMOLALITY 272 mosm/kg (275-300); CALCIUM 8.4 mg/dL (8.5-10.1); CARBON DIOXIDE 27.4 mmol/L (21.0-32.0); CHLORIDE - SERUM 102 mmol/L (98-107); CREATININE - SERUM 0.8 mg/dL (0.6-1.3); GLUCOSE 95 mg/dL (74-106); POTASSIUM - SERUM 4.3 mmol/L (3.5-5.1); SODIUM 136 mmol/L (136-145); UREA NITROGEN 14 mg/dL (7-18); eGFR NON AFRICAN AMERICAN > 90 mL/min (90-120)
[2018-12-24 08:00] VITALS: BP 118/65
--- NOTE | 2018-12-24 08:00 | NUR ---
PATIENT IS ALERT/ORIENT. SITTING UP IN BED TO EAT BREAKFAST. CALL LIGHT WITHIN REACH. VOICES NO NEEDS. WILL CONTINUE WITH PLAN OF CARE
--- NOTE | 2018-12-24 09:46 | NUR ---
PATIENT IN REHAB ROOM. WORKING WITH PHYSICAL THERAPIST. DENIES ANY PAIN/DISC AT THIS TIME.
--- NOTE | 2018-12-24 11:11 | NUR ---
ZIP TIES REMOVED FROM RIGHT KNEE AND RIGHT THIGH AREA. LEFT OPEN TO AIR.
--- NOTE | 2018-12-24 14:46 | NUR ---
PATIENT WAKING UP AND DOWN HALLWAY WITH THERAPY USING WHEELED WALKER
--- NOTE | 2018-12-24 18:58 | NUR ---
GREETED PATIENT AND INTRODUCED MYSELF HIS NURSE. PATIENT IS SITTING IN WHEELCHAIR NEXT TO BEDSIDE. RESPIRATIONS EVEN. NO S/S OF DISTRESS. CALL LIGHT IN REACH.
[2018-12-24 19:19] VITALS: BP 101/56
--- NOTE | 2018-12-24 23:57 | NUR ---
PT. RESTING QUIETLY WITH EYES CLOSED. RESPIRATIONS EVEN. NO S/S OF DISTRESS. CALL LIGHT IN REACH.
[2018-12-25 08:03] VITALS: BP 120/71
[2018-12-25] MEDS ORDERED: oxyCODONE IR PO (08:15)
--- NOTE | 2018-12-25 09:20 | NUR ---
PATIENT DISCHARGING HOME TODAY WITH [facility]. NO NEW DME NEEDED AT THIS TIME. PATIENT CHOICE FORM (HAND OUT GIVEN ) AND IMFM FORMS SIGNED, COPY GIVEN TO PATIENT AND FILED IN CHART. DISCHARGE INSTRUCTIONS FAXED TO PCP, HOME HEALTH AND TO PATIENT INSURANCE (TOM YOUNG , REF. # [id number]). DR. ZENG 12/31/18 @ 11:30, DR. SINGLETARY 12/27/18 @ 10:15. DISHCARGE INSTRUCTIONS REVIWED WITH PATIENT AND SPOUSE PER NURSE.
--- NOTE | 2018-12-25 10:09 | NUR ---
DC INSTRUCTIONS GIVEN TO PATIENT AND . PRESCRIPTION GIVEN TO PATIENT/ FOR OXYCODONE. TRAMADOL CALLED TO [facility]. PATIENT SIGNED DC PAPERS BUT WILL WAIT FOR HIS RIDE WHICH SHOULD BE HERE AROUND 1 OR 2.
--- NOTE | 2018-12-25 11:31 | NUR ---
NO CHANGE IN ASSESSMENT. SITTING IN WC IN ROOM. CL IN REACH. ALERT AND ORIENTED.
== END 2018-12-25 14:00 | disposition home health service (06) | DRG 560 ==
LOC: D.REHAB 18:19
PROVIDERS: ADMIT Emergency Medicine; ATTEND Emergency Medicine
DX: S72.301D Unspecified fracture of shaft of right femur, subsequent encounter for closed fracture with routine healing (principal); D62 Acute posthemorrhagic anemia; W19.XXXD Unspecified fall, subsequent encounter; R53.1 Weakness; M19.90 Unspecified osteoarthritis, unspecified site; Z96.651 Presence of right artificial knee joint; I25.10 Atherosclerotic heart disease of native coronary artery without angina pectoris; E03.9 Hypothyroidism, unspecified; K21.9 Gastro-esophageal reflux disease without esophagitis; Z95.2 Presence of prosthetic heart valve

== ENCOUNTER 2019-11-10 08:03 | Emergency (ER) | payer MEDICARE, MEDICAID ==
[~2019-11-10 08:03] MED LIST changes: +oxyCODONE IR PO
[2019-11-10 08:09] VITALS: Ht 167.6 cm
[2019-11-10] MEDS ORDERED: PLAVIX75 MG PO (08:16)
[2019-11-10] MEDS ORDERED: KEFLEX500 MG PO (08:21)
[2019-11-10] MEDS ORDERED: ACETAMINOPHEN500 M1 PO (08:22)
[2019-11-10 09:11] VITALS: BP 111/90
== END 2019-11-10 09:11 | disposition home or self-care (01) ==
LOC: D.ER 08:03
DX: K02.9 Dental caries, unspecified (principal); K05.10 Chronic gingivitis, plaque induced; K08.89 Other specified disorders of teeth and supporting structures; J32.9 Chronic sinusitis, unspecified; Z95.0 Presence of cardiac pacemaker; I25.2 Old myocardial infarction; J45.909 Unspecified asthma, uncomplicated; K21.9 Gastro-esophageal reflux disease without esophagitis